=== PATIENT | female | born 1930 | race Caucasian/White ===

== ENCOUNTER 2017-01-26 19:07 | Inpatient (IN) | payer OTHER ==
[~2017-01-26] VITALS: Ht 149.8 cm; Wt 47.6 kg
--- NOTE | ~2017-01-26 | CON ---
[place], [place] REPORT OF CON[facility]ATION [id number] UNIT #: [id number] ROOM: [facility] DOCTOR: SUKHWINDER HERNANDEZ MD BIRTHDATE: [birth year] DOS: 01/27/2017 PULMONARY CONSULTATION, EVALUATION AND MANAGEMENT CONSULTATION REQUESTED BY: Hospitalist services. REASON FOR CONSULTATION: To assess the patient for acute exacerbation of COPD. HISTORY OF PRESENT ILLNESS: An 86-year-old white female with past history of COPD, presented to the Emergency Room. The patient developed symptoms of increased shortness of breath. The patient's symptoms have been noted worsened in the last few days. The patient had been admitted in [facility] [place] on 01/07/2017, managed for the congestive heart failure and COPD. The patient was discharged home on 01/13/2017. Shortness of breath has been noted gradually worsened. The patient denies symptoms of chest pain. She has been noted with symptoms of coughing with some sputum expectoration at times. She denies symptoms of chest pain or hemoptysis. She does complain of some pressure in the chest. The patient has been currently treated with oxygen supplementation and bronchodilators. She was known with history of chronic hypoxic respiratory failure and is supposedly using oxygen supplementation on 5 liters nasal cannula. REVIEW OF SYSTEMS: CONSTITUTIONAL: Complaining of symptoms of fatigue and tiredness, but does not have any fever or chills. EYES: Denies any burning, redness, or tenderness. EARS, NOSE, THROAT: No sore throat, hoarseness, otalgia, postnasal drainage. The patient was complaining of dryness of the nose. CARDIOVASCULAR: Denies anginal pain, but edema of the lower extremity at this time. Denies symptoms of palpitations or angina. GASTROINTESTINAL: Denies dysphagia, nausea, vomiting, abnormal weight loss, hematochezia, or gastroesophageal reflux. GENITOURINARY: Denies dysuria, suprapubic pain, hematuria. MUSCULOSKELETAL: Denies acute joint pain, redness, or tenderness. SKIN: Denies any lesions or rashes. CENTRAL NERVOUS SYSTEM: Denies dizziness, headache, diplopia or syncopal episodes. SOCIAL HISTORY: The patient stated that she is , does have 12 children. She has been noted history of tobacco use since teenager, 1 pack of cigarettes per day that was discontinued in approximately 2010. Denies any occupation-related pulmonary exposure. Denies any alcohol use or any illicit drugs use. FAMILY HISTORY: Noted both parents have been for this patient. Father from complication of heart problem. Mother at age 5555 years old, complication related to the cancer. HOME MEDICATIONS: Noted as use of oxygen supplementation on 5 liters nasal cannula, recent prescription of amoxicillin, some kind of cholesterol [place], [place] REPORT OF CONSULTATION NAME: PEDRO HACKETT UNIT #: [id number] ROOM: [facility] DOCTOR: FRITZ YUSUF MD,SUKHWINDER BIRTHDATE: [birth year] medication, doxepin, lisinopril, omeprazole, and verapamil. DRUG ALLERGY HISTORY: Noted as allergies to: 1. MORPHINE SULPHATE. 2. CODEINE PHOSPHATE. PHYSICAL EXAMINATION: GENERAL: This is an 86-year-old white female who has been noted currently awake and alert at this time without any acute distress, getting oxygen supplementation on nasal cannula. Height of 4 feet 11 inches, weight of 100 pounds, BMI 20.2. VITAL SIGNS: Temperature was recorded as normal since admission. Respiratory rate recorded as 36 on admission, currently noted about 20. The heart rate of 73. Blood pressure was noted as 134/67. Pulse oxygen saturation recorded on 3.5 liters nasal cannula as 92% saturation, noted on 5 liters nasal canula 99% saturation. HEENT: Examination shows head was atraumatic. Eyes nonicterus. NECK: Supple. Oral mucosa was noted as moist. CARDIOVASCULAR: S1, S2 audible. LUNGS: The patient was noted with moderate reduced breath sounds, scattered crackles of the lungs with expiratory wheezing. ABDOMEN: Soft, nontender. EXTREMITIES: Shows no acute edema, clubbing or cyanosis. CENTRAL NERVOUS SYSTEM: Cranial nerves 2-12 intact. No focal deficits. MUSCULOSKELETAL: No deformities. SKIN: Showed no lesions or rashes. LABORATORY DATA: The lactic acid yesterday noted 0.9. CBC on 01/26/2017, WBC count 13.1, hemoglobin ____, hematocrit 31.2 with platelet count 226,000. The PT/INR was noted as normal yesterday. CMP of 01/26/2017 was noted with BUN 20, creatinine 1.14. Carbon dioxide 39, chloride of 93. The PT, PTT repeated again in this morning labs were normal. Troponin were noted minimally elevated at 0.47 this morning. BMP this morning was noted, glucose 257, BUN 23, creatinine 1.45, sodium 134, CO2 was 37. CBC this morning, hemoglobin 8.4, hematocrit 27.7, platelet count was normal 180,000 with normal WBC count. The review of the radiology data: The chest x-ray that was done on this admission, 1 view on 01/26/2017 was reviewed, shows findings of increased interstitial marking with possibility of pulmonary venous congestion. There was no significant pleural fluid visible. There was no gross pulmonary infiltration visible as well. IMPRESSION: 1. The patient has been currently noted with findings of increased shortness of breath with recurrence of acute exacerbation of chronic obstructive pulmonary disease, possibility of acute congestive heart failure related to the current history, increased interstitial markings. Underlying interstitial lung disease cannot be completely excluded as well. 2. Past history of nicotine dependence with tobacco cessation a few years ago. 3. Acute kidney injury, most likely secondary to volume contraction, would be considered or congestive heart failure with prerenal azotemia. 4. Elderly status. [place], [place] REPORT OF CONSULTATION NAME: PEDRO HACKETT UNIT #: [id number] ROOM: [facility] DOCTOR: FRITZ YUSUF MD,[facility] BIRTHDATE: [birth year] 5. Dryness in nasal mucosa, related to possibly use of high flow of oxygen. PLAN OF TREATMENT: The patient was ordered [place] [facility] [place] for nasal passages to keep the nasal mucosa moist ____ humidified. Continuation of the IV Solu-Medrol. Bronchodilators. Avoid excessive diuretic therapy. Monitor respiratory status closely. Titrate oxygen, maintaining saturation 90% or greater. Continue use of the bronchodilators as well. Continue current antibiotics as ordered based on the kidney functions. She has been ordered Levaquin 500 mg every 48 hours. Collected sputum for Gram stain and culture if the patient expectorates any sputum as well. Further additional changes in the treatment will be done based on the progression of the illness. Mildly abnormal troponin was also noted, significance of that unknown. The patient already being assessed by the Cardiology Services for that reason. She has been also known with history of congestive heart failure, whether systolic or diastolic dysfunction was unknown as there has not been any echocardiogram available, and medical records from [facility], [place] have been ordered and not available at this time. Thanks for allowing me to participate in the care of this patient. SUKHWINDER HU MD CM:CONSTR:REPORT OF CONSULTATION 1242 01/27/17 1529 interface
--- NOTE | ~2017-01-26 | PR ---
[place], [place] PROGRESS NOTE NAME: PEDRO HACKETT [facility] #: [id number] UNIT #: [id number] ROOM: 520 DOCTOR: AMNA RIOS MD BIRTHDATE: [birth year] DOS: 01/30/2017 SUBJECTIVE: The patient was seen at her bedside today. No family was available. She was actually sleeping when I came into the room and lying almost flat on her right side, but did arouse quickly and stated that she is feeling much better today than she was for the last few days. She denied any chest pain or palpitations. She denies any nausea or vomiting. She is an 86-year-old woman with a history of severe obstructive lung disease, chronic kidney disease and diastolic heart failure. She was admitted for respiratory failure and probable pneumonia. She had recently been hospitalized at the [facility] for similar complaints. She does have chronic hypercarbic respiratory failure with hypoxemia and requires daily treatment with BiPAP. PHYSICAL EXAMINATION: VITAL SIGNS: Today, her pulse is 94 and regular, blood pressure is 130/62. She has temperature of 99.3, oxygen saturation is 99% with her on 5 liters of oxygen by nasal cannula. NECK: Supple. She has no jugular distention. Carotids are full. LUNGS: Respirations are unlabored. She has markedly decreased breath sounds bilaterally, but no wheezes or rales. HEART: Has a regular rhythm with a grade 4/6 late peaking systolic ejection murmur along the left sternal border. No diastolic murmurs are present. ABDOMEN: Soft and normoactive. EXTREMITIES: Showed no edema. LABORATORY DATA: Hemoglobin is low at 7.7, white count is 9300, platelet count is 193,000. Sodium is 138, potassium 3.6, BUN of 37 and creatinine 1.7. I did increase her diuresis yesterday and she seems to be tolerating that well with somewhat improvement of her respiratory status. IMPRESSION: 1. Chronic diastolic congestive heart failure. 2. Chronic respiratory failure with pulmonary fibrosis. The patient had an acute exacerbation prior to the current admission. 3. Borderline elevation of troponin due to chronic kidney disease, hypoxemia, work of breathing, etc. This represents a type 2 myocardial injury. The patient does not show any signs of an acute myocardial infarction. 4. Systolic ejection murmur due to hypertrophic cardiomyopathy with chordal systolic anterior motion of the mitral valve and a sigmoid interventricular septum. 5. Mild mitral insufficiency. 6. Hypertension. 7. Anemia. PLAN: I would continue her current medications as prescribed. No other cardiac workup is planned at this time. She is not a candidate for any aggressive or invasive cardiac diagnostic or therapeutic options. [place], [place] PROGRESS NOTE NAME: PEDRO HACKETT UNIT #: [id number] ROOM: 520 DOCTOR: AMNA RIOS MD BIRTHDATE: [birth year] We thank the hospitalist physicians for asking our advice regarding her care. AMNA RIOS MD CM:PNTRANS [phone] [id number] AMNA RIOS MD 01/30/172027 interface
--- NOTE | ~2017-01-26 | PR ---
[place], [place] PROGRESS NOTE NAME: PEDRO HACKETT UNIT #: [id number] ROOM: 520 DOCTOR: SUKHWINDER HERNANDEZ MD BIRTHDATE: [birth year] DOS: 01/31/2017 SUBJECTIVE: She has been noted comfortable at this time without any distress, continued to show reduction in symptoms of shortness breath. There were no symptoms of chest pain. Mild cough was noted. OBJECTIVE: VITAL SIGNS: For the patient, normal temperature this morning, respiratory rate 24, heart rate of 58, blood pressure 151/59. The pulse oxygen saturation of the patient noted on 5 L nasal cannula 97% saturation previously. BiPAP was 100% saturation. HEENT: Showed no new change. NECK: Supple. CARDIOVASCULAR: S1, S2 is audible. LUNGS: Noted with moderate decreased breath sounds, scattered crackles. There was no wheezing. ABDOMEN: Soft, nontender. LABORATORY DATA: The patient's CBC today, hemoglobin 7.3, hematocrit 23.5, platelet count was normal. WBC count was normal. CMP of the patient this morning, BUN 37, creatinine 1.46. Carbon dioxide of 37. IMPRESSION: 1. The patient with acute congestive heart failure with left ventricular outflow tract obstruction. 2. Elderly status. 3. Acute hypercapnic and hypoxic respiratory failure secondary to the above as well. 4. Acute exacerbation of chronic obstructive pulmonary disease. 5. Suspected acute pneumonia for this patient, treat her with antibiotics responding to the treatment. PLAN AND MANAGEMENT: Continue current plan of management, use of the BiPAP, oxygen supplementation, bronchodilators, diuretic therapy. Monitor kidney function and electrolytes. Other supportive plan of therapy and care. Usual treatment, other supportive plan of management. [place], [place] PROGRESS NOTE NAME: PEDRO HACKETT UNIT #: [id number] ROOM: 520 DOCTOR: SUKHWINDER HERNANDEZ MD BIRTHDATE: [birth year] SUKHWINDER HU MD CM:PNTRANS [phone] SUKHWINDER YUSUF MD 01/31/172043 interface
--- NOTE | ~2017-01-26 | PR ---
[place], [place] PROGRESS NOTE [id number] UNIT #: [id number] [facility] DOCTOR: FRITZ YUSUF MD,SUKHWINDER BIRTHDATE: [birth year] DOS: 01/28/2017 SUBJECTIVE: The patient developed acute respiratory distress yesterday with arterial blood gases obtained for the assessment. The patient was noted with significant hypoxia yesterday. She was transferred to Intensive Care Unit. BiPAP was started yesterday. She responded to treatment, still noted symptoms of shortness of breath, but noted decreased from yesterday. Mild cough noted without any sputum expectoration. Denies any symptoms of acute chest pain. OBJECTIVE: VITAL SIGNS: Recorded showed the temperature noted as normal; respiratory rate of 14-16, highest yesterday at 24, heart rate ranged between 63 and 73, blood pressure 137/47 to 98/56. Pulse oxygen saturation recorded on the BiPAP was 100% and with the oxygen supplementation 96% saturation with the nasal cannula. HEENT: Shows no acute change. NECK: Supple. CARDIOVASCULAR: S1, S2 audible. LUNGS: Show moderate reduction in the breath sounds noted, scattered crackles. No wheezing. ABDOMEN: Soft and nontender. EXTREMITIES: Show no edema. LABORATORY DATA: BMP this morning: BUN 31, creatinine 1.81, and CO2 of 36. CBC this morning: WBC count 12,000, hemoglobin 7.2, hematocrit 23.6, and platelet count 171,000. Arterial blood gases, the first one at the time of respiratory distress at 10:45 a.m., pH of 7.37, pCO2 of 52, and pO2 of 45.9. Arterial blood gases on the BiPAP that was done 4 hours later, pH of 7.39, pCO2 of 52, pO2 of 69 with 50% oxygen ____. The chest x-ray shows evidence of pulmonary venous congestion and findings of the congestive heart failure would be considered. IMPRESSION: 1. The patient who has been currently noted with gradual reduction and improvement in the respiratory status, the patient noted with acute worsening yesterday initially. 2. Acute congestive heart failure would be considered. 3. Possibility of right lower lobe pneumonia. 4. Acute kidney injury. PLAN OF MANAGEMENT: Continue the use of BiPAP with oxygen supplementation. Obtain PA and lateral chest x-ray for more accurate assessment of right lower lobe process, which suggest possibility of infiltration or pneumonia. Continuation of the other previous treatment plan and management. Supportive therapy, plan of care and treatment. Additional treatment changes will be done based on the progression of the illness. [place], [place] PROGRESS NOTE NAME: PEDRO HACKETT UNIT #: [id number] [facility] DOCTOR: FRITZ YUSUF MD,SUKHWINDER BIRTHDATE: [birth year] SUKHWINDER HU MD CM:ROSSI [id number] SUKHWINDER YUSUF MD 01/28/17 1249 interface
--- NOTE | ~2017-01-26 | PR ---
[place], [place] PROGRESS NOTE [id number] UNIT #: [id number] ROOM: [facility] DOCTOR: MARGARET ROSEN MD BIRTHDATE: [birth year] DOS: 01/28/2017 REASON FOR VISIT: CHF and elevated troponin. SUBJECTIVE: The patient is significantly much better today, less short of breath. She is sitting next to the bed and eating her lunch. She denies any chest pain or palpitations. She is a little short of breath, but better than yesterday. No PND, no orthopnea. REVIEW OF SYSTEMS: Review of the 8 systems negative except as mentioned above. RHYTHM STRIP: The patient is in sinus rhythm on the monitor. PHYSICAL EXAMINATION: VITAL SIGNS: Blood pressure 150/80, pulse 58, respiratory rate is 28. GENERAL: Alert, comfortable, in mild respiratory distress. HEAD AND NECK: Pupils round and equal. No jaundice. Tongue was moist and pharynx was clear. Neck is supple. No distended neck veins. No carotid bruits. CHEST: Symmetrical, nontender. LUNGS: A few scattered rhonchi and diminished diffusely. HEART: Regular, no S3, grade 2/6 to 3/6 systolic ejection murmurs. ABDOMEN: Benign, nontender. Bowel sounds normal. EXTREMITIES: Showed no edema and distal pulses are palpable. SKIN: Warm and dry. No cyanosis, no clubbing. NEUROLOGIC: The patient is alert, oriented, no focal neurologic deficit. RECTAL: Deferred. GENITOURINARY: Deferred. IMPRESSION: 1. Chronic congestive heart failure. 2. Acute on chronic respiratory failure, per Dr. Mckeon. 3. Borderline elevation of troponin due to chronic kidney disease. 4. Significant heart murmur due to aortic stenosis as well as chordal systolic anterior motion as well as sigmoid interventricular septum. 5. Aoho-db-blddoyaa aortic stenosis. 6. Mild mitral regurgitation. 7. Hypertension. 8. Anemia. RECOMMENDATIONS: 1. Continue her current medication. 2. I will start Lasix 20 mg once daily and monitor her blood pressures and renal function. 3. There is no further cardiac testing at this time. 4. She can be transferred to telemetry floor and possibly discharge home soon. 5. Echo findings are discussed with the patient and her family who is at bedside and all questions answered. 6. She will be at high risk for any cardiac surgical procedures, hence conservative medical therapy. [place], [place] PROGRESS NOTE NAME: PEDRO HACKETT UNIT #: [id number] ROOM: [facility] DOCTOR: MARGARET ROSEN MD BIRTHDATE: [birth year] MAGRARET ROSEN MD CM:PNTRANS [id number] MARGARET ROSEN MD 01/29/17 0406 interface
--- NOTE | ~2017-01-26 | PR ---
[place], [place] PROGRESS NOTE NAME: PEDRO HACKETT [facility] #: [id number] UNIT #: [id number] ROOM: 520 DOCTOR: AMNA RIOS MD BIRTHDATE: [birth year] DOS: SUBJECTIVE: The patient was seen at her bedside with family in attendance today. She is an 86-year-old woman with a history of obstructive lung disease, chronic kidney disease and diastolic heart failure. She was admitted on this occasion with worsening shortness of breath and possible pneumonia. She states that she was recently hospitalized at the [facility] for similar complaints. She was shown to have hypercarbic respiratory failure with hypoxemia and was placed in the intensive care unit where she did respond to diuresis and therapy with BiPAP. Even now; however, very slight increases in activity will result in significant hypoxemia, even though she is wearing supplemental oxygen. The patient did have some left-sided chest pain at rest prior to admission. In the hospital, she has shown no signs of acute myocardial infarction. An echocardiogram showed normal left ventricular size with a sigmoid deformity of the basal septum. There was normal left ventricular wall thickness and systolic function, but she did demonstrate chordal HONEY with outflow tract obstruction, possibly due to a small hyperdynamic ventricle. Today, when I walked in the room, she just finished using the bedside commode and she desaturated down into the 80s despite wearing oxygen at 5 liters per minute by nasal cannula. She was placed on BiPAP with immediate improvement in oxygen saturation. PHYSICAL EXAMINATION: VITAL SIGNS: Today, her pulse is 66 and regular, blood pressure is 125/47. She is afebrile. NECK: Supple. She has no jugular distention. She does have mild hepatojugular reflux. Carotids are full. LUNGS: Respirations are labored at rest with use of accessory muscles. She does have fine crackles at the bases bilaterally. HEART: Has a regular rhythm with an S4 gallop. Heart tones are distant. ABDOMEN: Soft. EXTREMITIES: Showed no edema. DIAGNOSTIC STUDIES: Chest x-ray done on 01/27/2017 showed pulmonary fibrosis with mild prominence of the pulmonary vasculature. A right basilar opacity was felt to represent atelectasis, although they could not rule out pneumonia. White count is elevated at 11,100, hemoglobin is 7.6. INR is 0.9. Sodium 137, potassium 4.0, BUN 37, creatinine 1.57. IMPRESSION: 1. Chronic diastolic congestive heart failure. 2. Chronic respiratory failure with pulmonary fibrosis associated with acute exacerbation. 3. Borderline elevation of troponin due to chronic kidney disease, hypoxemia, work of breathing, etc. This probably represents a type 2 myocardial injury. The patient does not show any signs of an acute myocardial infarction. 4. Systolic ejection murmur due to chordal systolic anterior motion and a [place], [place] PROGRESS NOTE NAME: PEDRO HACKETT UNIT #: [id number] [facility] DOCTOR: AMNA RIOS MD BIRTHDATE: [birth year] sigmoid interventricular septum. 5. Mild mitral insufficiency. 6. Hypertension. 7. Anemia. PLAN: We will increase her furosemide to 20 mg b.i.d. and continue to monitor her blood pressure and renal functions. She is not a candidate for any form of aggressive/invasive cardiac evaluation or management. We will do our best to keep her comfortable with medical therapy. We thank the hospitalist physicians for asking our advice regarding her care. AMNA RIOS MD CM:PNTRANS [phone] AMNA RIOS MD 01/29/172249 interface
--- NOTE | ~2017-01-26 | CON ---
[place], [place] REPORT OF CONSULTATION NAME: PEDRO HACKETT UNIT #: [id number] ROOM: [facility] DOCTOR: SAAD DORSEY MD BIRTHDATE: [birth year] DOS: 01/27/2017 REASON FOR CONSULTATION: Dyspnea and CHF. HISTORY OF PRESENT ILLNESS: The patient is an 86-year-old patient with history of COPD, anemia, chronic kidney disease, was consulted for shortness of breath. She apparently was admitted to the hospital in [place] and was discharged recently. She presented to the Emergency Room for shortness of breath and admitted to the hospital. She was transferred to ICU because of her hypoxia. She was transferred ICU year and Cardiology consulted. Apparently, the patient had some left-sided chest pain at rest on the night before. This pain has no radiation, no associated symptoms, mild and the pain on its own. She denies any chest pain. She is still short of breath from her chronic respiratory failure. Denies any palpitations, dizziness. No orthopnea. No fever and chills. No nausea, vomiting, no headaches. No neurologic symptoms. No genitourinary symptoms. REVIEW OF SYSTEMS: Review of the 8 systems negative except as mentioned above. PAST MEDICAL HISTORY: 1. Hypertension. 2. COPD. 3. Chronic heart failure per records. 4. Vitamin D deficiency. 5. Acid reflux. PAST SURGICAL HISTORY: History of , cholecystectomy and appendicectomy. SOCIAL HISTORY: The patient does not smoke or drink, does not use illicit drugs. FAMILY HISTORY: Noncontributory due to her age. Father from cardiac issues. Mother at the age of 55 from cancer. ALLERGIES: The patient is allergic to CODEINE. HOME MEDICATIONS: Reviewed. PHYSICAL EXAMINATION: VITAL SIGNS: Blood pressure was 137/65, pulse 75, respiratory rate 20, BMI 20.3. GENERAL: The patient was alert, comfortable, in mild respiratory distress on BiPAP. HEENT: Pupils are round, equal. No jaundice. Pharynx was incomplete, the patient was on BiPAP. NECK: Supple, no distended neck veins, no carotid bruit. CHEST: Symmetrical, nontender. LUNGS: Diffuse scattered rhonchi, diminished at bases. HEART: Regular rhythm, no S3, grade 1/6 systolic murmur. [place], [place] REPORT OF CONSULTATION NAME: PEDRO HACKETT UNIT #: [id number] ROOM: [facility] DOCTOR: SUNITA ARCE,SAAD BIRTHDATE: [birth year] ABDOMEN: Benign, nontender. Bowel sounds normal. EXTREMITIES: Showed no edema. Distal pulses palpable. SKIN: Warm, dry. No cyanosis, no clubbing. NEUROLOGIC: The patient is alert, oriented. No focal neurologic deficit. RECTAL: Deferred. GENITOURINARY: Deferred. MUSCULOSKELETAL: No joint tenderness or swelling. REVIEW OF THE DIAGNOSTIC TESTS: EKG, rhythm strips and imaging studies reviewed. Labs reviewed. EKG shows sinus rhythm with nonspecific ST changes. Pertinent labs include hemoglobin 8.9, creatinine 1.45. Troponin 0.47. The highest troponin was 0.067. IMPRESSION: 1. Congestive heart failure, possibly acute on chronic diastolic heart failure. The patient did receive some diuretics today, so tomorrow we will start Lasix 20 mg based on her blood pressures and kidney function. 2. Borderline elevation of troponin due to chronic kidney disease. 3. Chronic respiratory failure. 4. Anemia. 5. Hypertension. RECOMMENDATIONS: 1. Continue her current treatment and will use diuretics as needed. 2. A 2D echo was ordered and pending. 3. There is no family at bedside at the time of my examination. Thank you, Dr. Sanderson, for asking us to evaluate this patient and we will follow the case along with you. Just conservative medical therapy due to her age and other comorbidities. SAAD DORSEY MD CM:CONSTR:REPORT OF CONSULTATION 1148 01/28/17 0117 interface
--- NOTE | ~2017-01-26 | PR ---
[place], [place] PROGRESS NOTE NAME: PEDRO HACKETT [facility] #: [id number] UNIT #: [id number] ROOM: [facility] DOCTOR: FRITZ YUSUF MD,SUKHWINDER BIRTHDATE: [birth year] DOS: 01/29/2017 SUBJECTIVE: She had been noted comfortable, resting on the bed, eating breakfast, use the BiPAP. The patient was advised to continue diuretic therapy. The shortness of breath has been noted decreased. There was no coughing or sputum expectoration described by the patient. OBJECTIVE: VITAL SIGNS: For the patient this morning, the blood pressure was noted as 118/62, respiratory rate 17, heart rate 64, temperature normal. HEENT: Examination shows age-related changes. NECK: Supple. CARDIOVASCULAR SYSTEM: S1, S2 audible. LUNGS: The patient noted decreased breath sounds in the lower portion bilaterally with occasional crackles, no wheezing. ABDOMEN: Soft, nontender. EXTREMITIES: Shows no edema. LABORATORY DATA: BMP today: BUN 37, creatinine 1.57, glucose 180. CO2 was 34. CBC of this morning, WBC count 11.1, hemoglobin 7.6, hematocrit 24.2 with platelet count 175,000, 97% segmented neutrophils was noted. Urine culture shows evidence of heavy growth of E. coli. IMPRESSION: 1. The patient who has been noted with gradual resolution of the acute congestive heart failure with acute hypoxic respiratory failure. 2. Suspected pneumonia, right lower lobe. 3. Acute kidney injury as well. PLAN OF TREATMENT: Continue the BiPAP, oxygen supplementation, bronchodilators and other treatment as in progress. No change in the treatment will be needed for today. SUKHWINDER HU MD CM:PNTRANS [id number] SUKHWINDER YUSUF MD 01/29/17 1423 interface
--- NOTE | ~2017-01-26 | PR ---
[place], [place] PROGRESS NOTE NAME: PEDRO HAKCETT UNIT #: [id number] ROOM: 520 DOCTOR: SUKHWINDER HERNANDEZ MD BIRTHDATE: [birth year] DOS: 01/30/2017 SUBJECTIVE: She has been noted comfortable at this time, transferred to the fifth floor from the intensive care unit. Continue diuretic therapy as a medical management. She denies any chest pain. Shortness of breath has been resolving. OBJECTIVE: VITAL SIGNS: Normal temperature, respiratory rate 20, heart rate 68, blood pressure 150/80. Pulse oxygen saturation recorded on 5 liters nasal cannula 92% saturation. HEENT: Showed no acute change. NECK: Supple. CARDIOVASCULAR: S1, S2 audible. LUNGS: Scattered crackles, no wheezing. ABDOMEN: Soft, nontender. EXTREMITIES: Showed no edema. LABORATORY DATA: BMP today: BUN 37, creatinine 1.70, glucose 201, CO2 34. CBC this morning, hemoglobin 7.7, hematocrit 25.2, platelet count 193,000, 95% segmented neutrophils. Urine culture on 01/26/2017 was noted gram-negative bacilli as E. coli. IMPRESSION: 1. The patient with resolving acute hypoxic respiratory failure gradually with acute congestive heart failure. 2. Left ventricular outflow obstruction. The patient was also noted significant elevation of the gradient across the aortic valve. She was also noted anemia. Today, hemoglobin noted 7.7, hematocrit 25.3. 3. Severe debility. PLAN OF THERAPY: Continuation of the Lasix, which has been currently given 20 mg of Lasix b.i.d. Solu-Medrol dose will be decreased. The patient has COPD exacerbation and has been improving. All other supportive therapy, plan and management. Usual care. Continue other treatment, plan and management. Use of the BiPAP with the oxygen supplementation as well as tolerated. Overall, prognosis of the patient is guarded. [place], [place] PROGRESS NOTE NAME: PEDRO HACKETT UNIT #: [id number] ROOM: 520 DOCTOR: SUKHWINDER HERNANDEZ MD BIRTHDATE: [birth year] SUKHWINDER HU MD CM:PNTRANS [phone] SUKHWINDER YUSUF MD 01/31/17100 interface
[~2017-01-26 19:07] MED LIST: AMOXICILLIN500 MG PO; DOXEPIN10 MG; LISINOPRIL2.5 MG; PRILOSEC10 MG; THE MEDICINE S400 IU; VERAPAMIL; VICODIN 5/500 505 MG PO; [UNRECOGNIZED DRUG - REMARK]
[2017-01-26 19:21] VITALS: BP 114/49
[2017-01-26 19:45] VITALS: BP 99/69
[2017-01-26 20:00] LABS: BASO % 0.1 % (0.0-1.0); EOS # 0.2 10*3/uL (0.0-0.4); EOS % 1.2 % (1.0-4.0); HEMATOCRIT 31.2 % (37.0-47.0); HEMOGLOBIN 9.3 g/dl (12.0-16.0); LYMPH # 1.1 10*3/uL (1.3-4.4); LYMPH % 8.4 % (27.0-41.0); MEAN CELL VOLUME 95.7 fl (81.0-99.0); MEAN CORPUSCULAR HGB 28.5 pg (27.0-31.0); MEAN CORPUSCULAR HGB CONC 29.8 g/dl (33.0-37.0); MEAN PLATELET VOLUME 9.9 fl (9.6-12.3); MONO % 7.2 % (3.0-9.0); NEUT # 10.9 10*3/uL (2.3-7.9); NEUT % 82.6 % (47.0-73.0); PLATELET COUNT AUTOMATED 226 10*3/uL (130-400); RED BLOOD COUNT 3.26 10*6/uL (4.10-5.10); RED CELL DISTRI WIDTH 13.9 % (0-14.5); WHITE BLOOD COUNT 13.1 10*3/uL (4.8-10.8)
[2017-01-26 20:10] LABS: INTERNATIONAL NORM RATIO 0.9 (2.0-3.5)
[2017-01-26 20:15] VITALS: BP 110/65
[2017-01-26 20:17] LABS: CREATININE 1.14 mg/dL (0.55-1.02); MAGNESIUM 1.9 mg/dL (1.5-2.1); POTASSIUM 4.3 mmol/L (3.5-5.1); TOTAL PROTEIN 6.7 gm/dL (6.4-8.2)
[2017-01-26 20:21] LABS: TROPONIN I 0.066 ng/ml (<0.045)
[2017-01-26 20:30] VITALS: BP 122/59
[2017-01-26 20:42] LABS: BILIRUBIN NEGATIVE (NEGATIVE); BLOOD TRACE-INTACT (NEGATIVE); CLARITY SL CLOUDY (CLEAR); COLOR YELLOW (YELLOW); GLUCOSE NEGATIVE (NEGATIVE); KETONE NEGATIVE (NEGATIVE); LEUKO ESTERASE 2+ (NEGATIVE); NITRITE POSITIVE (NEGATIVE); PH 5.5 (5.0-9.0); SPECIFIC GRAVITY <= 1.005 (1.005-1.030); UROBILINOGEN 0.2 E.U./dl (0.2-1.0)
[2017-01-26 20:45] VITALS: BP 128/59
[2017-01-26 20:50] LABS: BACTERIA 4+; RBC 0-2 rbc/hpf (0-2); WBC 16-20 wbc/hpf (0-5)
[2017-01-26 21:35] VITALS: BP 117/43
[2017-01-27] VITALS (11 sets, daily range): BP systolic 98–158; BP diastolic 50–71
[2017-01-27] MEDS ORDERED: ADVAIR 250/501 EA INH (01:51)
[2017-01-27] MEDS ORDERED: CITALOPRAM10 MG PO (01:52)
[2017-01-27] MEDS ORDERED: ASPIR LOW81 MG PO (01:52)
[2017-01-27] MEDS ORDERED: FEROSUL325 MG PO (01:53)
[2017-01-27] MEDS ORDERED: LASIX40 MG PO (01:54)
[2017-01-27] MEDS ORDERED: DUONEB 3 MG/3 ML3 M1 INH (01:54)
[2017-01-27] MEDS ORDERED: SPIRIVA18 MCG PO (01:56)
[2017-01-27] MEDS ORDERED: VITAMIN B121000 MC1 PO (01:58)
[2017-01-27] MEDS ORDERED: CALAN120 M1 PO (01:58)
[2017-01-27] MEDS ORDERED: VITAMIN D35000 UNIT/ PO (02:00)
[2017-01-27 03:43] LABS: HEMATOCRIT 27.7 % (37.0-47.0); HEMOGLOBIN 8.4 g/dl (12.0-16.0); MEAN CELL VOLUME 95.2 fl (81.0-99.0); MEAN CORPUSCULAR HGB 28.9 pg (27.0-31.0); MEAN CORPUSCULAR HGB CONC 30.3 g/dl (33.0-37.0); MEAN PLATELET VOLUME 9.6 fl (9.6-12.3); PLATELET COUNT AUTOMATED 180 10*3/uL (130-400); RED BLOOD COUNT 2.91 10*6/uL (4.10-5.10); RED CELL DISTRI WIDTH 13.7 % (0-14.5); WHITE BLOOD COUNT 9.9 10*3/uL (4.8-10.8)
[2017-01-27 03:54] LABS: ACT PARTIAL THROMBO TIME 24.9 SECONDS (20.8-31.5); INTERNATIONAL NORM RATIO 0.9 (2.0-3.5)
[2017-01-27 03:55] LABS: CREATININE 1.45 mg/dL (0.55-1.02)
[2017-01-27 04:00] LABS: FREE T4 0.98 ng/dl (0.76-1.46)
[2017-01-27 04:05] LABS: THYROID STIM HORMONE (HS) 2.47 uIU/ml (0.358-4.75)
[2017-01-27 04:08] LABS: PLATELET SUFFICIENCY NORMAL (NORMAL); TOTAL CELLS COUNTED 100 #CELLS
[2017-01-27 08:24] LABS: VITAMIN D, 25-HYDROXY 39.6 ng/mL (30-100)
[2017-01-27 11:01] LABS: ABG BASE EXCESS 4.5 mmol/L (-2.0-2.0); ARTERIAL BLOOD GAS PCO2 52.3 mmHg (35-45); ARTERIAL BLOOD GAS PH 7.375 (7.35-7.45); ARTERIAL BLOOD GAS PO2 45.9 mmHg (80-90)
[2017-01-27 11:02] LABS: HEMATOCRIT 27.9 % (37.0-47.0); HEMOGLOBIN 8.6 g/dl (12.0-16.0); MEAN CELL VOLUME 94.6 fl (81.0-99.0); MEAN CORPUSCULAR HGB 29.2 pg (27.0-31.0); MEAN CORPUSCULAR HGB CONC 30.8 g/dl (33.0-37.0); MEAN PLATELET VOLUME 10.2 fl (9.6-12.3); PLATELET COUNT AUTOMATED 201 10*3/uL (130-400); RED BLOOD COUNT 2.95 10*6/uL (4.10-5.10); RED CELL DISTRI WIDTH 13.6 % (0-14.5); WHITE BLOOD COUNT 10.9 10*3/uL (4.8-10.8)
[2017-01-27 11:27] LABS: TOTAL CELLS COUNTED 100 #CELLS
[2017-01-27 11:28] LABS: PLATELET SUFFICIENCY NORMAL (NORMAL)
[2017-01-27 11:40] LABS: ALBUMIN 2.7 gm/dl (3.1-4.5); CREATININE 1.61 mg/dL (0.55-1.02); POTASSIUM 3.6 mmol/L (3.5-5.1); TOTAL PROTEIN 6.5 gm/dL (6.4-8.2)
[2017-01-27 13:20] LABS: ABG BASE EXCESS 6.3 mmol/L (-2.0-2.0); ABG HCO3 31.6 mmol/l (22-26); ABG O2 SATURATION 95.2 % (95-97); ARTERIAL BLOOD GAS PCO2 52.2 mmHg (35-45); ARTERIAL BLOOD GAS PH 7.397 (7.35-7.45); ARTERIAL BLOOD GAS PO2 69.7 mmHg (80-90)
[2017-01-28] VITALS: BP 139/49
[2017-01-28 04:00] VITALS: BP 137/47
[2017-01-28 05:52] LABS: CREATININE 1.81 mg/dL (0.55-1.02)
[2017-01-28 05:53] LABS: POTASSIUM 4.6 mmol/L (3.5-5.1)
[2017-01-28 05:55] LABS: HEMATOCRIT 23.6 % (37.0-47.0); HEMOGLOBIN 7.2 g/dl (12.0-16.0); MEAN CELL VOLUME 95.2 fl (81.0-99.0); MEAN CORPUSCULAR HGB CONC 30.5 g/dl (33.0-37.0); MEAN PLATELET VOLUME 10.5 fl (9.6-12.3); PLATELET COUNT AUTOMATED 171 10*3/uL (130-400); RED BLOOD COUNT 2.48 10*6/uL (4.10-5.10)
[2017-01-28 07:00] LABS: PLATELET SUFFICIENCY NORMAL (NORMAL); POLYCHROMASIA SLIGHT; TOTAL CELLS COUNTED 100 #CELLS
[2017-01-28 08:00] VITALS: BP 150/80
[2017-01-28 12:00] VITALS: BP 132/54
[2017-01-28 16:00] VITALS: BP 139/50
[2017-01-28 20:00] VITALS: BP 137/56
[2017-01-29] VITALS: BP 133/57
[2017-01-29 04:00] VITALS: BP 136/58
[2017-01-29 06:17] LABS: HEMATOCRIT 24.2 % (37.0-47.0); HEMOGLOBIN 7.6 g/dl (12.0-16.0); MEAN CELL VOLUME 94.5 fl (81.0-99.0); MEAN CORPUSCULAR HGB 29.7 pg (27.0-31.0); MEAN CORPUSCULAR HGB CONC 31.4 g/dl (33.0-37.0); MEAN PLATELET VOLUME 10.6 fl (9.6-12.3); PLATELET COUNT AUTOMATED 175 10*3/uL (130-400); RED BLOOD COUNT 2.56 10*6/uL (4.10-5.10); RED CELL DISTRI WIDTH 13.9 % (0-14.5); WHITE BLOOD COUNT 11.1 10*3/uL (4.8-10.8)
[2017-01-29 06:32] LABS: ALBUMIN 2.6 gm/dl (3.1-4.5); CREATININE 1.57 mg/dL (0.55-1.02); PHOSPHOROUS 3.8 mg/dL (2.5-4.9); TOTAL PROTEIN 5.8 gm/dL (6.4-8.2)
[2017-01-29 07:31] LABS: TOTAL CELLS COUNTED 100 #CELLS
[2017-01-29 07:32] LABS: PLATELET SUFFICIENCY NORMAL (NORMAL); POLYCHROMASIA SLIGHT
[2017-01-29 08:00] VITALS: BP 118/62
[2017-01-29 11:35] VITALS: BP 160/80
[2017-01-29 16:00] VITALS: BP 125/47
[2017-01-29 20:00] VITALS: BP 134/50
[2017-01-30] VITALS: BP 138/51
[2017-01-30 05:56] LABS: HEMATOCRIT 25.2 % (37.0-47.0); HEMOGLOBIN 7.7 g/dl (12.0-16.0); MEAN CELL VOLUME 93.7 fl (81.0-99.0); MEAN CORPUSCULAR HGB 28.6 pg (27.0-31.0); MEAN CORPUSCULAR HGB CONC 30.6 g/dl (33.0-37.0); MEAN PLATELET VOLUME 10.5 fl (9.6-12.3); PLATELET COUNT AUTOMATED 193 10*3/uL (130-400); RED BLOOD COUNT 2.69 10*6/uL (4.10-5.10); WHITE BLOOD COUNT 9.3 10*3/uL (4.8-10.8)
[2017-01-30 06:16] LABS: CREATININE 1.7 mg/dL (0.55-1.02); POTASSIUM 3.6 mmol/L (3.5-5.1)
[2017-01-30 06:37] LABS: TOTAL CELLS COUNTED 100 #CELLS
[2017-01-30 06:38] LABS: PLATELET SUFFICIENCY NORMAL (NORMAL); POLYCHROMASIA SLIGHT
[2017-01-30 08:00] VITALS: BP 150/80
[2017-01-30 12:00] VITALS: BP 130/62
[2017-01-30 16:00] VITALS: BP 130/42
[2017-01-30 20:00] VITALS: BP 108/57
[2017-01-31] VITALS: BP 133/53
[2017-01-31 06:17] LABS: HEMATOCRIT 23.5 % (37.0-47.0); HEMOGLOBIN 7.3 g/dl (12.0-16.0); LYMPH # 0.3 10*3/uL (1.3-4.4); LYMPH % 3.7 % (27.0-41.0); MEAN CELL VOLUME 93.3 fl (81.0-99.0); MEAN CORPUSCULAR HGB CONC 31.1 g/dl (33.0-37.0); MEAN PLATELET VOLUME 10.6 fl (9.6-12.3); MONO # 0.4 10*3/uL (0.1-1.0); MONO % 4.4 % (3.0-9.0); NEUT % 89.7 % (47.0-73.0); PLATELET COUNT AUTOMATED 212 10*3/uL (130-400); RED BLOOD COUNT 2.52 10*6/uL (4.10-5.10); RED CELL DISTRI WIDTH 13.9 % (0-14.5)
[2017-01-31 06:35] LABS: ALBUMIN 2.6 gm/dl (3.1-4.5); CREATININE 1.46 mg/dL (0.55-1.02); MAGNESIUM 1.9 mg/dL (1.5-2.1); POTASSIUM 3.7 mmol/L (3.5-5.1); TOTAL PROTEIN 5.3 gm/dL (6.4-8.2)
[2017-01-31 08:00] VITALS: BP 151/59
[2017-01-31 12:00] VITALS: BP 124/40
[2017-01-31 15:52] VITALS: BP 145/64
[2017-01-31 20:00] VITALS: BP 98/50
[2017-02-01] VITALS: BP 142/41
[2017-02-01 06:06] LABS: BASO % 0.1 % (0.0-1.0); HEMATOCRIT 24.1 % (37.0-47.0); HEMOGLOBIN 7.5 g/dl (12.0-16.0); LYMPH # 0.5 10*3/uL (1.3-4.4); LYMPH % 5.8 % (27.0-41.0); MEAN CELL VOLUME 94.1 fl (81.0-99.0); MEAN CORPUSCULAR HGB 29.3 pg (27.0-31.0); MEAN CORPUSCULAR HGB CONC 31.1 g/dl (33.0-37.0); MEAN PLATELET VOLUME 10.2 fl (9.6-12.3); MONO # 0.4 10*3/uL (0.1-1.0); MONO % 4.6 % (3.0-9.0); NEUT # 7.9 10*3/uL (2.3-7.9); NEUT % 86.6 % (47.0-73.0); PLATELET COUNT AUTOMATED 217 10*3/uL (130-400); RED BLOOD COUNT 2.56 10*6/uL (4.10-5.10); RED CELL DISTRI WIDTH 14.3 % (0-14.5); WHITE BLOOD COUNT 9.1 10*3/uL (4.8-10.8)
[2017-02-01 06:35] LABS: ALBUMIN 2.6 gm/dl (3.1-4.5); MAGNESIUM 2.2 mg/dL (1.5-2.1); POTASSIUM 4.3 mmol/L (3.5-5.1)
[2017-02-01 06:39] LABS: CREATININE 1.1 mg/dL (0.55-1.02); TOTAL PROTEIN 5.3 gm/dL (6.4-8.2)
[2017-02-01 08:00] VITALS: BP 156/50
[2017-02-01 12:00] VITALS: BP 145/56
[2017-02-01 16:00] VITALS: BP 145/50
[2017-02-01 20:00] VITALS: BP 135/49
[2017-02-02] VITALS: BP 155/58
[2017-02-02 06:20] LABS: HEMATOCRIT 25.1 % (37.0-47.0); HEMOGLOBIN 7.7 g/dl (12.0-16.0); MEAN CELL VOLUME 94.4 fl (81.0-99.0); MEAN CORPUSCULAR HGB 28.9 pg (27.0-31.0); MEAN CORPUSCULAR HGB CONC 30.7 g/dl (33.0-37.0); MEAN PLATELET VOLUME 10.2 fl (9.6-12.3); NUCLEATED RED BLOOD CELL 0.3 % (0.0-0.0); PLATELET COUNT AUTOMATED 251 10*3/uL (130-400); RED BLOOD COUNT 2.66 10*6/uL (4.10-5.10); RED CELL DISTRI WIDTH 14.5 % (0-14.5); WHITE BLOOD COUNT 9.2 10*3/uL (4.8-10.8)
[2017-02-02 06:48] LABS: CREATININE 1.17 mg/dL (0.55-1.02); POTASSIUM 4.3 mmol/L (3.5-5.1)
[2017-02-02 07:28] LABS: TOTAL CELLS COUNTED 100 #CELLS
[2017-02-02 07:29] LABS: PLATELET SUFFICIENCY NORMAL (NORMAL)
[2017-02-02 08:00] VITALS: BP 170/50
[2017-02-02 12:00] VITALS: BP 122/46
[2017-02-02 16:00] VITALS: BP 149/44
[2017-02-02 20:00] VITALS: BP 154/40
[2017-02-03] VITALS: BP 158/53
[2017-02-03 06:29] LABS: MEAN CELL VOLUME 96.3 fl (81.0-99.0); MEAN CORPUSCULAR HGB 29.6 pg (27.0-31.0); MEAN CORPUSCULAR HGB CONC 30.8 g/dl (33.0-37.0); NUCLEATED RED BLOOD CELL 0.1 10*3/uL (0.0-0.0); NUCLEATED RED BLOOD CELL 0.5 % (0.0-0.0); PLATELET COUNT AUTOMATED 262 10*3/uL (130-400); RED CELL DISTRI WIDTH 14.8 % (0-14.5); WHITE BLOOD COUNT 10.4 10*3/uL (4.8-10.8)
[2017-02-03 06:48] LABS: BUN 43 mg/dl (7-24); CHLORIDE 92 mmol/L (98-107); CREATININE 1.03 mg/dL (0.55-1.02); POTASSIUM 5.2 mmol/L (3.5-5.1); SODIUM 141 mmol/L (136-145)
[2017-02-03 07:18] LABS: PLATELET SUFFICIENCY NORMAL (NORMAL); POLYCHROMASIA SLIGHT; TOTAL CELLS COUNTED 100 #CELLS
[2017-02-03 08:00] VITALS: BP 166/50
[2017-02-03 12:00] VITALS: BP 142/84
[2017-02-03 16:00] VITALS: BP 152/44
[2017-02-03 20:00] VITALS: BP 156/40
[2017-02-04] VITALS: BP 148/83
[2017-02-04 06:14] LABS: HEMOGLOBIN 8.2 g/dl (12.0-16.0); MEAN CELL VOLUME 95.1 fl (81.0-99.0); MEAN CORPUSCULAR HGB 28.9 pg (27.0-31.0); MEAN CORPUSCULAR HGB CONC 30.4 g/dl (33.0-37.0); MEAN PLATELET VOLUME 10.2 fl (9.6-12.3); NUCLEATED RED BLOOD CELL 0.2 % (0.0-0.0); PLATELET COUNT AUTOMATED 288 10*3/uL (130-400); RED BLOOD COUNT 2.84 10*6/uL (4.10-5.10); RED CELL DISTRI WIDTH 14.6 % (0-14.5); WHITE BLOOD COUNT 12.3 10*3/uL (4.8-10.8)
[2017-02-04 06:28] LABS: BUN 34 mg/dl (7-24); CHLORIDE 92 mmol/L (98-107); SODIUM 140 mmol/L (136-145)
[2017-02-04 06:49] LABS: POTASSIUM 3.7 mmol/L (3.5-5.1)
[2017-02-04 06:52] LABS: PLATELET SUFFICIENCY NORMAL (NORMAL); POLYCHROMASIA SLIGHT; TOTAL CELLS COUNTED 100 #CELLS
[2017-02-04 08:00] VITALS: BP 164/88
[2017-02-04] MEDS ORDERED: DOXYCYCLINE100 M3 PO (11:55)
[2017-02-04] MEDS ORDERED: ACETAZOLAMIDE250 MG PO (11:55)
[2017-02-04] MEDS ORDERED: PREDNISONE10 MG PO (11:56)
== END 2017-02-04 14:37 | disposition home or self-care (01) | DRG 871 ==
LOC: ED 19:07 → EDHOLD 20:40 → ICCU 20:40 → 5E 20:40 → ICCU 01-27 10:09 → 5E 01-29 14:25
PROVIDERS: Emergency Medicine; Emergency Medicine Emergency Medical Services; Family Medicine; Internal Medicine; Internal Medicine Critical Care Medicine; Internal Medicine Hospice and Palliative Medicine; Internal Medicine Nephrology; ADMIT Internal Medicine
PROC: 5A09357 Assistance with Respiratory Ventilation, Less than 24 Consecutive Hours, Continuous Positive Airway Pressure (ICD-10-PCS; principal; 2017-01-27)
DX: A41.9 Sepsis, unspecified organism (principal); N17.0 Acute kidney failure with tubular necrosis; J96.21 Acute and chronic respiratory failure with hypoxia; I50.33 Acute on chronic diastolic (congestive) heart failure; E43 Unspecified severe protein-calorie malnutrition; J18.1 Lobar pneumonia, unspecified organism; J44.0 Chronic obstructive pulmonary disease with (acute) lower respiratory infection; I13.0 Hypertensive heart and chronic kidney disease with heart failure and stage 1 through stage 4 chronic kidney disease, or unspecified chronic kidney disease; J96.22 Acute and chronic respiratory failure with hypercapnia; J44.1 Chronic obstructive pulmonary disease with (acute) exacerbation; N39.0 Urinary tract infection, site not specified; I42.2 Other hypertrophic cardiomyopathy; E87.1 Hypo-osmolality and hyponatremia; J98.11 Atelectasis; Q21.0 Ventricular septal defect; K21.9 Gastro-esophageal reflux disease without esophagitis; J84.10 Pulmonary fibrosis, unspecified; R65.20 Severe sepsis without septic shock; D64.9 Anemia, unspecified; R31.9 Hematuria, unspecified; E55.9 Vitamin D deficiency, unspecified; I25.10 Atherosclerotic heart disease of native coronary artery without angina pectoris; K57.30 Diverticulosis of large intestine without perforation or abscess without bleeding; B96.20 Unspecified Escherichia coli [E. coli] as the cause of diseases classified elsewhere; K59.00 Constipation, unspecified; I07.1 Rheumatic tricuspid insufficiency; I37.1 Nonrheumatic pulmonary valve insufficiency; E87.8 Other disorders of electrolyte and fluid balance, not elsewhere classified; R54 Age-related physical debility; N18.9 Chronic kidney disease, unspecified; I34.0 Nonrheumatic mitral (valve) insufficiency; I35.0 Nonrheumatic aortic (valve) stenosis; R73.9 Hyperglycemia, unspecified; Z68.20 Body mass index [BMI] 20.0-20.9, adult; Z88.5 Allergy status to narcotic agent; Z90.49 Acquired absence of other specified parts of digestive tract; I25.2 Old myocardial infarction; Z80.9 Family history of malignant neoplasm, unspecified; Z82.49 Family history of ischemic heart disease and other diseases of the circulatory system; Z87.891 Personal history of nicotine dependence; Z79.82 Long term (current) use of aspirin; Z79.899 Other long term (current) drug therapy; E78.5 Hyperlipidemia, unspecified

== ENCOUNTER 2017-02-20 15:01 | Emergency (ER) | payer OTHER ==
[~2017-02-20] VITALS: Ht 152.4 cm; Wt 49.0 kg
[~2017-02-20 15:01] MED LIST changes: +ACETAZOLAMIDE250 MG PO; +ADVAIR 250/501 EA INH; +ASPIR LOW81 MG PO; +CALAN120 M1 PO; +CITALOPRAM10 MG PO; +DOXYCYCLINE100 M3 PO; +DUONEB 3 MG/3 ML3 M1 INH; +FEROSUL325 MG PO; +LASIX40 MG PO; +PREDNISONE10 MG PO; +SPIRIVA18 MCG PO; +VITAMIN B121000 MC1 PO; +VITAMIN D35000 UNIT/ PO
[2017-02-20 16:11] LABS: BASO % 0.1 % (0.0-1.0); EOS # 0.1 10*3/uL (0.0-0.4); EOS % 0.8 % (1.0-4.0); HEMATOCRIT 30.3 % (37.0-47.0); HEMOGLOBIN 9.1 g/dl (12.0-16.0); LYMPH # 0.8 10*3/uL (1.3-4.4); MEAN CELL VOLUME 96.2 fl (81.0-99.0); MEAN CORPUSCULAR HGB 28.9 pg (27.0-31.0); MEAN PLATELET VOLUME 10.4 fl (9.6-12.3); MONO # 0.6 10*3/uL (0.1-1.0); MONO % 6.3 % (3.0-9.0); NEUT # 7.3 10*3/uL (2.3-7.9); NEUT % 83.1 % (47.0-73.0); PLATELET COUNT AUTOMATED 226 10*3/uL (130-400); RED BLOOD COUNT 3.15 10*6/uL (4.10-5.10); RED CELL DISTRI WIDTH 15.8 % (0-14.5); WHITE BLOOD COUNT 8.8 10*3/uL (4.8-10.8)
[2017-02-20 16:18] LABS: BILIRUBIN NEGATIVE (NEGATIVE); BLOOD NEGATIVE (NEGATIVE); CLARITY SL CLOUDY (CLEAR); COLOR YELLOW (YELLOW); GLUCOSE NEGATIVE (NEGATIVE); KETONE NEGATIVE (NEGATIVE); LEUKO ESTERASE NEGATIVE (NEGATIVE); NITRITE NEGATIVE (NEGATIVE); UROBILINOGEN 0.2 E.U./dl (0.2-1.0)
[2017-02-20 16:30] LABS: ALBUMIN 2.8 gm/dl (3.1-4.5); CREATININE 1.07 mg/dL (0.55-1.02); POTASSIUM 3.4 mmol/L (3.5-5.1); TOTAL PROTEIN 6.2 gm/dL (6.4-8.2)
[2017-02-20 16:40] LABS: BACTERIA 2+; WBC 0-2 wbc/hpf (0-5)
[2017-02-20] MEDS ORDERED: PYRIDIUM200 M1 PO (16:59)
[2017-02-20] MEDS ORDERED: NORCO 5-325 TA1 EACH PO (16:59)
== END 2017-02-20 17:28 | disposition home or self-care (01) ==
LOC: ED 15:01
PROVIDERS: Physician Assistant
DX: R30.0 Dysuria (principal); G89.29 Other chronic pain; M54.5 Low back pain; Z79.899 Other long term (current) drug therapy; Z79.82 Long term (current) use of aspirin; Z90.49 Acquired absence of other specified parts of digestive tract; Z98.890 Other specified postprocedural states; Z88.5 Allergy status to narcotic agent

== ENCOUNTER 2017-02-26 16:39 | Inpatient (IN) | payer OTHER ==
[~2017-02-26] VITALS: Ht 152.4 cm; Wt 45.8 kg
--- NOTE | ~2017-02-26 | CON ---
[place], [place] REPORT OF CONSULTATION NAME: PEDRO HACKETT UNIT #: [id number] ROOM: 522 DOCTOR: ARMIN TONG,SEPTEMBER BIRTHDATE: [birth year] DOS: HISTORY OF PRESENT ILLNESS: The patient is an 86-year-old female who was admitted from home due to nausea and intolerance of oral Zyvox. She had completed approximately 4 doses of it at home for VRE in her urine. She has been first treated and diagnosed a couple of times in the last month or so for urinary infection. She had a urine that was positive for E. coli, mid January, January 31. She had a CT here of the abdomen and pelvis, which did not demonstrate any renal issues, only severe diverticulosis. Her symptoms that she states for her UTI, are back pain, which she states is recurring, which she indicates is lumbar that radiates around to her side. Denies any recent falls, states she did have some dysuria prior to the urine culture being obtained. Had nausea with the Zyvox. No fevers or chills, no hematuria. No cough or shortness of breath. No diarrhea. PAST MEDICAL HISTORY: As above as well as appendectomy, , cholecystectomy, COPD, diverticulosis. FAMILY MEDICAL HISTORY: Father due to cardiac disease. Mother had cancer, heart disease, and diabetes. SOCIAL HISTORY: She is a reformed smoker, no alcohol or illicit drug use. REVIEW OF SYSTEMS: As above in history of present illness. Further review of systems unremarkable. No lower extremity edema. No joint swelling or pain. She does have severe kyphosis. States, she still had back pain yesterday and has resolved today. LABORATORY DATA: WBC is 5.9, platelets 332. BUN 16, creatinine 1.23. LFTs within normal limits. Troponin 0.053. UA positive for nitrites, only trace leukocyte esterase; however, WBC is 11-15 per high powered field. Urine culture is pending. Blood cultures are negative thus far. CURRENT MEDICATIONS: Include linezolid being given IV, verapamil, Lasix, Feosol, B12, Celexa, vitamin D, aspirin, Dulera, DuoNeb, [place], Restoril, Zofran, milk of magnesia. PHYSICAL EXAMINATION: VITAL SIGNS: Temperature 98.8, pulse 69, respirations 20, BP 112/38. She has been afebrile since admission. GENERAL: Alert and oriented, frail 86-year-old female in no acute distress, nontoxic in appearance. HEAD, EYES, EARS, NOSE AND THROAT: Normocephalic, no thrush. NECK: Supple. No cervical lymphadenopathy. LUNGS: Diminished right base. Respirations even and unlabored. No rales or rhonchi. HEART: Regular rhythm with grade 3-4 murmur noted. ABDOMEN: Soft, nondistended. EXTREMITIES: No edema, deformity or cyanosis. She does have severe kyphosis. No CVA tenderness. Eubanks catheter draining clear yellow urine with trace of [place], [place] REPORT OF CONSULTATION NAME: PEDRO HACKETT UNIT #: [id number] ROOM: 522 DOCTOR: ARMIN TONGSEPTEMBER BIRTHDATE: [birth year] sediment. ASSESSMENT: Vancomycin-resistant enterococci bacteriuria, possible urinary tract infection. PLAN: She is tolerating the Zyvox IV, it could probably be stopped tomorrow that will give her a total of 3 days. We will await her urine culture. She has remained in contact isolation. I did review her chest x-ray films. Case discussed with Dr. Kelli Mar. Also re reviewed prior charts. ADDENDUM. After reviewing the labs, radiographs and microbiology, I agree with the above plans as described in Infectious Disease consult. I will follow the patient up clinically and make appropriate adjustments accordingly. MARIAM FUNEZ CNP KELLI MAR MD CM:CONSTR:REPORT OF CONSULTATION 17 02/28/17 413 interface
--- NOTE | ~2017-02-26 | PR ---
[place], [place] PROGRESS NOTE NAME: [facility]ACKETT [id number] UNIT #: [id number] ROOM: 522 DOCTOR: ARMIN TONG,SEPTEMBER BIRTHDATE: [birth year] DOS: 02/28/2017 SUBJECTIVE: The patient is being followed for VRE bacteriuria, possible UTI. She was on Zyvox as an outpatient, did not tolerate it orally, had nausea and vomiting. She was admitted with that. She has had a urine culture done on admission, which is now growing Gram-negative bacilli. She was also treated for E. coli in mid January. Her UA only had a trace leukocyte esterase and 11-15 wbc's. Her complaint was originally back pain, which she also was still complaining of yesterday. She denies any back pain today. She did have a CT of the abdomen and pelvis in mid January, which did not demonstrate any renal calculi or hydronephrosis. She has been afebrile. Denies any nausea, vomiting or diarrhea. Her Eubanks catheter was removed approximately 3 hours ago and she has not urinated yet. White count is normal. CURRENT MEDICATIONS: Include linezolid IV, Calan SR, Lasix, Feosol, Celexa, vitamin D, aspirin, Dulera, DuoNeb, [place], Restoril, Zofran. LABORATORY DATA: WBC's 5.6, platelets 285. BUN 19, creatinine 1.29. PHYSICAL EXAMINATION: VITAL SIGNS: Showed temperature 96.7, pulse 60, respirations 22, BP 122/50. GENERAL: An 86-year-old female in no acute distress. HEAD, EYES, EARS, NOSE AND THROAT: Normocephalic. No thrush. LUNGS: Diminished on the right. Respirations even and unlabored. HEART: Regular rhythm. No murmur appreciated. ABDOMEN: Soft, nontender. EXTREMITIES: No edema. BACK: She does have severe kyphosis. ASSESSMENT AND PLAN: Vancomycin resistant enterococcal bacteriuria, which has cleared. She now has Gram-negative nallely bacteriuria. If she is not symptomatic, specifically for urinary tract infection, would not recommend treating it. Repeat urine cultures are not indicated to verify clearing of bacteria. She is likely colonized at this point and I would suspect it is going to be something ____ resistant to antibiotics given all those she has had in the last month or so. If her back pain continues, considering that her kidneys have been without issue on her CT in January, then I would work up a musculoskeletal source for her back pain, especially given her severe kyphosis and her age and likely osteoporosis. SEPTEMBER RAN FUNEZ [place], [place] PROGRESS NOTE NAME: PEDRO HACKETT UNIT #: [id number] ROOM: 522 DOCTOR: ARMIN TONG BIRTHDATE: [birth year] KELLI MAR MD CM:PNTRANS [id number] SEPTEMBER ARMIN TONG 03/01/17 0451 interface
--- NOTE | ~2017-02-26 | PR ---
[place], [place] PROGRESS NOTE NAME: PEDRO HACKETT UNIT #: [id number] ROOM: 522 DOCTOR: ISABELA ARCE,KELLI Broussard BIRTHDATE: [birth year] DOS: 02/28/2017 ADDENDUM After reviewing the chart, labs and cultures, I agree with the plans as described above. We will follow the patient up clinically and adjust accordingly. KELLI MAR MD CM:PNTRANS 1404 [id number] KELLI MAR MD 03/02/17 1441 interface
[~2017-02-26 16:39] MED LIST changes: +NORCO 5-325 TA1 EACH PO; +PYRIDIUM200 M1 PO
[2017-02-26 16:53] VITALS: BP 93/57
[2017-02-26 17:38] LABS: BASO % 0.2 % (0.0-1.0); EOS % 0.6 % (1.0-4.0); HEMATOCRIT 28.5 % (37.0-47.0); HEMOGLOBIN 8.5 g/dl (12.0-16.0); LYMPH # 0.8 10*3/uL (1.3-4.4); LYMPH % 13.6 % (27.0-41.0); MEAN CELL VOLUME 95.3 fl (81.0-99.0); MEAN CORPUSCULAR HGB 28.4 pg (27.0-31.0); MEAN CORPUSCULAR HGB CONC 29.8 g/dl (33.0-37.0); MEAN PLATELET VOLUME 9.1 fl (9.6-12.3); MONO # 0.6 10*3/uL (0.1-1.0); MONO % 9.1 % (3.0-9.0); NEUT # 4.7 10*3/uL (2.3-7.9); PLATELET COUNT AUTOMATED 325 10*3/uL (130-400); RED BLOOD COUNT 2.99 10*6/uL (4.10-5.10); RED CELL DISTRI WIDTH 15.3 % (0-14.5); WHITE BLOOD COUNT 6.2 10*3/uL (4.8-10.8)
[2017-02-26 18:02] LABS: ALBUMIN 2.9 gm/dl (3.1-4.5); CREATININE 1.32 mg/dL (0.55-1.02)
--- NOTE | 2017-02-26 18:55 | NUR ---
PT REMAINS AWAKE AND ALERT. A ANDERSON CATHETER HAS BEEN PLACED. PT STATED THAT ABDOMINAL PRESSURE IMPROVED AFTER CATHETER WAS PLACED AND BEGAN TO DRAIN. YARELI CONSTANTINO
[2017-02-26 19:00] LABS: BILIRUBIN NEGATIVE (NEGATIVE); BLOOD TRACE-LYSED (NEGATIVE); CLARITY CLEAR (CLEAR); COLOR YELLOW (YELLOW); GLUCOSE NEGATIVE (NEGATIVE); KETONE NEGATIVE (NEGATIVE); LEUKO ESTERASE TRACE (NEGATIVE); NITRITE POSITIVE (NEGATIVE); PH 5.5 (5.0-9.0); UROBILINOGEN 0.2 E.U./dl (0.2-1.0)
[2017-02-26 19:10] LABS: RBC 0-2 rbc/hpf (0-2)
[2017-02-26 19:11] LABS: BACTERIA 2+
--- NOTE | 2017-02-26 19:50 | NUR ---
PT PROVIDED WITH BOXED LUNCH AT THIS TIME. PT SITTING UP IN BED TO EAT. PT TOLERTING WELL.
[2017-02-26 20:38] VITALS: BP 119/43
--- NOTE | 2017-02-26 20:38 | NUR ---
A 86, admitted to 5E, under the services of BRIANNA Mckinney DO with a diagnosis of acute heart failure, ARF, HX VRE URINE. Chief complaint is since taking the 4th dose of zyvox for UTI, per family pt. has had nausea, dizziness, headache. swelling in feet and general malaise. not voided today.. Patient arrived via stretcher from ER. Monitor applied. Initial assessment completed. Vital signs taken and recorded. BRIANNA MCKINNEY DO notified of admission to the unit. Orders received. See assessment for past medical history, medications and allergies. Patient and/or family oriented to unit. [facility] visitation policy reviewed. Clothing/patient valuable form completed. JAZMINE MUÑOZ
[2017-02-26] MEDS ORDERED: VERAPAMIL HYDR120 M1 PO (20:45)
[2017-02-26] MEDS ORDERED: FORTIFY PO (20:52)
[2017-02-26] MEDS ORDERED: ZYVOX600 MG PO (20:58)
--- NOTE | 2017-02-26 21:35 | NUR ---
CALLED DR. BHAKTA AND NOTIFIED HIM OF PT. ADMIT, CONDITION AND THAT HOME MEDICATIONS HAVE BEEN VERIFIED WITH THE SON. ORDERS TO BE RECIEVED.
[2017-02-27] VITALS: BP 106/48
--- NOTE | 2017-02-27 03:51 | NUR ---
LAB CALLED FLOOR WITH CRITICAL TROPONIN 0.049. CALLED DR. BHAKTA AND NOTIFIED HIM OF THIS AND NO NEW ORDERS RECEIVED.
[2017-02-27 06:17] LABS: BASO % 0.2 % (0.0-1.0); EOS # 0.1 10*3/uL (0.0-0.4); HEMATOCRIT 29.2 % (37.0-47.0); HEMOGLOBIN 8.9 g/dl (12.0-16.0); LYMPH # 1.3 10*3/uL (1.3-4.4); LYMPH % 21.9 % (27.0-41.0); MEAN CELL VOLUME 95.1 fl (81.0-99.0); MEAN CORPUSCULAR HGB CONC 30.5 g/dl (33.0-37.0); MEAN PLATELET VOLUME 9.4 fl (9.6-12.3); MONO # 0.7 10*3/uL (0.1-1.0); MONO % 12.3 % (3.0-9.0); NEUT # 3.8 10*3/uL (2.3-7.9); NEUT % 64.1 % (47.0-73.0); PLATELET COUNT AUTOMATED 332 10*3/uL (130-400); RED BLOOD COUNT 3.07 10*6/uL (4.10-5.10); RED CELL DISTRI WIDTH 15.2 % (0-14.5); WHITE BLOOD COUNT 5.9 10*3/uL (4.8-10.8)
--- NOTE | 2017-02-27 06:33 | NUR ---
LAB CALLED WITH CRITICAL TROPONIN 0.[address] BHAKTA AND NOTIFIED HIM OF THIS AND NO NEW ORDERS AT THIS TIME.
[2017-02-27 06:46] LABS: ALBUMIN 2.9 gm/dl (3.1-4.5); CREATININE 1.23 mg/dL (0.55-1.02); MAGNESIUM 2.4 mg/dL (1.5-2.1); PHOSPHOROUS 3.3 mg/dL (2.5-4.9); POTASSIUM 3.1 mmol/L (3.5-5.1)
[2017-02-27 07:06] LABS: VITAMIN D, 25-HYDROXY 59.7 ng/mL (30-100)
[2017-02-27 07:15] LABS: THYROID STIM HORMONE (HS) 9.14 uIU/ml (0.358-4.75)
[2017-02-27 08:00] VITALS: BP 116/55
--- NOTE | 2017-02-27 11:59 | NUR ---
DR KAISER ANSWERING SERVICE MADE AWARE OF NEW CONSULT ORDER AND STATED THEY WILL NOTIFY THE DRTia LUMBER MATERIAL HANDLER TODAY.
[2017-02-27 12:00] VITALS: BP 118/56
--- NOTE | 2017-02-27 12:00 | NUR ---
DR LOCO MADE AWARE THAT WE NEED WOUND CARE ORDERS FOR PT.
--- NOTE | 2017-02-27 12:29 | NUR ---
DR WILSON MADE AWARE OF NEW CONSULT ORDER.
[2017-02-27 16:00] VITALS: BP 112/38
[2017-02-27 20:00] VITALS: BP 117/69
[2017-02-28] VITALS: BP 111/44
--- NOTE | 2017-02-28 01:15 | NUR ---
IV started left forearm with #22 angiocath after 1st attempts. The IV site was prepped with Chloraprep. Heparin lock attached. Sterile dressing applied. Patient tolerated precedure well. Procedure performed according to [facility] policy & procedure. JAZMINE MUÑOZ
[2017-02-28 06:35] LABS: BASO % 0.2 % (0.0-1.0); EOS # 0.1 10*3/uL (0.0-0.4); EOS % 1.1 % (1.0-4.0); HEMATOCRIT 25.3 % (37.0-47.0); HEMOGLOBIN 7.7 g/dl (12.0-16.0); LYMPH # 1.2 10*3/uL (1.3-4.4); MEAN CELL VOLUME 95.1 fl (81.0-99.0); MEAN CORPUSCULAR HGB 28.9 pg (27.0-31.0); MEAN CORPUSCULAR HGB CONC 30.4 g/dl (33.0-37.0); MEAN PLATELET VOLUME 8.9 fl (9.6-12.3); MONO # 0.7 10*3/uL (0.1-1.0); MONO % 11.7 % (3.0-9.0); NEUT # 3.6 10*3/uL (2.3-7.9); NEUT % 64.5 % (47.0-73.0); PLATELET COUNT AUTOMATED 285 10*3/uL (130-400); RED BLOOD COUNT 2.66 10*6/uL (4.10-5.10); RED CELL DISTRI WIDTH 15.1 % (0-14.5); WHITE BLOOD COUNT 5.6 10*3/uL (4.8-10.8)
[2017-02-28 06:47] LABS: CREATININE 1.29 mg/dL (0.55-1.02); MAGNESIUM 2.1 mg/dL (1.5-2.1); PHOSPHOROUS 3.3 mg/dL (2.5-4.9)
[2017-02-28 06:51] LABS: POTASSIUM 4.2 mmol/L (3.5-5.1)
[2017-02-28 08:00] VITALS: BP 127/55
--- NOTE | 2017-02-28 09:00 | NUR ---
Sheet Metal Superintendent in to talk to patient. Patient states lives at home with son. There are few steps in the home. Physician: doctor from [facility]: mail Home health services: none Patient's level of ADLs: MINIMAL ASSIST Patient has working utilities: all working DME: 2 walkers, stairlift, oxygen Follow-up physician's appointment after d/c: will be made by hospitalist nurse director upon discharge Does patient want to access PORTAL?: no Discharge plan discussed with patient, patient will be going back home with son, will also contact son to make sure patient doesn't need anything at home. SERA SINGH
[2017-02-28 12:00] VITALS: BP 122/50
--- NOTE | 2017-02-28 12:30 | NUR ---
PT MEDICATED WITH ZOFRAN FOR C/O NAUSEA. WILL MONITOR. CALL LIGHT WITHIN REACH
--- NOTE | 2017-02-28 12:53 | NUR ---
ANDERSON CATHETER REMOVED PER DR'S ORDER.
--- NOTE | 2017-02-28 14:22 | NUR ---
PEDRO HACKETT [id number] Please refer to the physician's history and physical for past medical history, comorbid conditions, and allergies. Diagnosis: ACUTE HEART FAILURE ARF Lucas Score: 18,AT RISK WOUND DESCRIPTIONS: Location of the wound: coccyx Type of wound: stage 3 Thickness: Full Size: 1.5cm x 1.0cm x 0.1cm Tunneling: none Undermining: none Sinus Tract: none Presence of Exudate: serosanguineous Amount: Light Color: yellow and red Odor: None Periwound Skin Appearance: Normal Wound edges: approximated Pain (associated with wound): none at time of assessment How does patient state this happened? Pt unsure how this occurred. Location of the wound: right buttock Type of wound: stage 2 Thickness: Partial Size: 0.8cm x 1.2cm x 0.1cm Tunneling: none Undermining: none Sinus Tract: none Presence of Exudate: serosanguineous Amount: Light Color: red Odor: None Periwound Skin Appearance: Normal Wound edges: approximated Pain (associated with wound): none at time of assessment How does patient state this happened? Pt unsure how this occurred. Location of the wound: left buttock Type of wound: stage 2 Thickness: Partial Size: 0.4cm x 0.2cm x 0.1cm Tunneling: none Undermining: none Sinus Tract: none Presence of Exudate: serosanguineous Amount: Light Color: red Odor: None Periwound Skin Appearance: Normal Wound edges: approximated Pain (associated with wound): none at time of assessment How does patient state this happened? Pt unsure how this occurred. Surface the patient is resting on: Position Pro SKIN PREVENTION RECOMMENDATION: 1. Pressure redistribution support surface as appropriate 2. Elevate heels 3. Remove boots/TEDS every shift and reapply 4. Head of bed 30 degrees as tolerated 5. Assess nutrition and hydration 6. Manage moisture 7. Avoid the use of containment devices while in bed 8. Use absorptive products on surfaces limit layers of linens on bed 9. Turn and reposition every 1-2 hours in bed and every 1 hour in chair as tolerated 10. Weight shifts every 15 minutes while up in chair 11. Offloading with pillows or device to keep heels elevated off bed 12. Monitor skin at least every shift 13. Inspect under medical devices twice a day WOUND TREATMENT RECOMMENDATIONS: Cleanse area to coccyx, left and right buttocks with nss and apply sureprep surrounding wounds, vesatel to wound bed, therahoney to wound bed and cover with optifoam sacral gentle.
[2017-02-28 16:00] VITALS: BP 116/57
--- NOTE | 2017-02-28 17:01 | NUR ---
PHYSICAL THERAPY PAtient reports she is too ill and has no controil over her bowels thia date. Thank you for this referal. Sherri barrera,PT
--- NOTE | 2017-02-28 17:41 | NUR ---
PT HAS ONLY URINATED 25CC SINCE ANDERSON CATH REMOVED. I BLADDER SCANNED PT AND IT SHOWED ON 147CC IN HER BLADDER. I NOTIFIED DR Manuel [place] OF THIS.
--- NOTE | 2017-02-28 18:57 | NUR ---
PT DID GET UP TO BEDSIDE COMMODE AND VOIDED 100CC OF URINE.
[2017-02-28 20:00] VITALS: BP 111/41
[2017-03-01] VITALS: BP 113/81
--- NOTE | 2017-03-01 05:01 | NUR ---
PATIENT RESTING IN BED WITH EYES CLOSED. NO SIGNS OR SYMPTOMS OF DISTRESS NOTED. CALL LIGHT IN REACH. WILL CONTINUE TO MONITOR.
[2017-03-01 07:22] LABS: BASO % 0.4 % (0.0-1.0); EOS # 0.1 10*3/uL (0.0-0.4); EOS % 1.6 % (1.0-4.0); HEMOGLOBIN 7.7 g/dl (12.0-16.0); LYMPH # 1.1 10*3/uL (1.3-4.4); MEAN CELL VOLUME 95.4 fl (81.0-99.0); MEAN CORPUSCULAR HGB 29.4 pg (27.0-31.0); MEAN CORPUSCULAR HGB CONC 30.8 g/dl (33.0-37.0); MONO # 0.5 10*3/uL (0.1-1.0); MONO % 10.8 % (3.0-9.0); NEUT # 3.3 10*3/uL (2.3-7.9); NEUT % 64.8 % (47.0-73.0); PLATELET COUNT AUTOMATED 291 10*3/uL (130-400); RED BLOOD COUNT 2.62 10*6/uL (4.10-5.10); RED CELL DISTRI WIDTH 15.1 % (0-14.5)
[2017-03-01 07:38] LABS: CREATININE 1.37 mg/dL (0.55-1.02); POTASSIUM 4.2 mmol/L (3.5-5.1)
[2017-03-01 08:00] VITALS: BP 106/72
--- NOTE | 2017-03-01 11:15 | NUR ---
AT 1111 PT REFUSED SA TX...STATES SHE WANTS TO EAT..FAMILY MEMBER IN ROOM WITH PT AND STATES THEY WILL CALL IF PT WANTS A TX
--- NOTE | 2017-03-01 11:56 | NUR ---
MEDICATED WITH PRN PO NORCO FOR C/O BACK/GENERALIZED PAIN.
[2017-03-01 12:00] VITALS: BP 100/50
--- NOTE | 2017-03-01 14:30 | NUR ---
PRN PO NORCO EFFECTIVE, PER PATIENT.
--- NOTE | 2017-03-01 15:59 | NUR ---
MEDICATED WITH PRN PO DULCOLAX FOR HARD STOOLS/CONSTIPATION.
[2017-03-01 16:00] VITALS: BP 107/46
--- NOTE | 2017-03-01 16:20 | NUR ---
PHYSICAL THERAPY PAtient evalauted on 5, full evaluation to follow. Continue with PT as per plan of care with fall and acute debility precautions. May require SNF for impaired mobility- if patient refuses, home with 24 hour family assist and complete home health services. Patient is moderate complexity via chart review, test and evaluation: [id number]. thank you for this referral. Sherri barrera,PT
--- NOTE | 2017-03-01 19:29 | NUR ---
PATIENT AWAITING DISCHARGE HOME; SON TO COME TONIGHT TO RECEIVE INSTRUCTIONS WITH HER AND TRANSPORT HOME. CYCLE ANALYST REMOVED, HEPLOCK REMOVED. PROBIOTICS FROM HOME RETURNED TO THE PATIENT.
--- NOTE | 2017-03-01 20:15 | NUR ---
Discharge instructions reviewed with patient/family. Patient receptive and verbalizes understanding. Follow-up care arranged. Written instructions given to patient/family. Patient discharged via wheelchair. No signs of any distress or discomfort noted at this time. PHIL ABDUL
== END 2017-03-01 20:15 | disposition home or self-care (01) | DRG 690 ==
LOC: ED 16:39 → 5E 19:45 → EDHOLD 19:45 → 5E 20:09
PROVIDERS: Emergency Medicine; Family Medicine Adult Medicine; Hospitalist; Internal Medicine; Internal Medicine Nephrology; ADMIT Internal Medicine
DX: N30.00 Acute cystitis without hematuria (principal); E44.0 Moderate protein-calorie malnutrition; J96.10 Chronic respiratory failure, unspecified whether with hypoxia or hypercapnia; I11.0 Hypertensive heart disease with heart failure; L89.152 Pressure ulcer of sacral region, stage 2; I50.32 Chronic diastolic (congestive) heart failure; Z68.1 Body mass index [BMI] 19.9 or less, adult; J44.9 Chronic obstructive pulmonary disease, unspecified; E87.6 Hypokalemia; R73.9 Hyperglycemia, unspecified; D72.9 Disorder of white blood cells, unspecified; D72.810 Lymphocytopenia; D72.821 Monocytosis (symptomatic); D64.9 Anemia, unspecified; K21.9 Gastro-esophageal reflux disease without esophagitis; I25.10 Atherosclerotic heart disease of native coronary artery without angina pectoris; M54.9 Dorsalgia, unspecified; K57.90 Diverticulosis of intestine, part unspecified, without perforation or abscess without bleeding; G89.29 Other chronic pain; E55.9 Vitamin D deficiency, unspecified; Z16.21 Resistance to vancomycin; K59.09 Other constipation; L40.9 Psoriasis, unspecified; Z87.01 Personal history of pneumonia (recurrent); Z87.440 Personal history of urinary (tract) infections; Z88.6 Allergy status to analgesic agent; Z88.5 Allergy status to narcotic agent; Z90.49 Acquired absence of other specified parts of digestive tract; Z98.891 History of uterine scar from previous surgery; Z87.891 Personal history of nicotine dependence; Z82.49 Family history of ischemic heart disease and other diseases of the circulatory system; Z83.3 Family history of diabetes mellitus; Z80.9 Family history of malignant neoplasm, unspecified; Z79.82 Long term (current) use of aspirin; Z79.899 Other long term (current) drug therapy

== ENCOUNTER 2017-03-02 21:31 | Emergency (ER) | payer OTHER ==
[~2017-03-02] VITALS: Ht 149.8 cm; Wt 63.5 kg
[~2017-03-02 21:31] MED LIST changes: +FORTIFY PO; +VERAPAMIL HYDR120 M1 PO; +ZYVOX600 MG PO
== END 2017-03-03 00:26 | disposition home or self-care (01) ==
LOC: ED 21:31
DX: S51.011A Laceration without foreign body of right elbow, initial encounter (principal); S09.90XA Unspecified injury of head, initial encounter; M25.511 Pain in right shoulder; J44.9 Chronic obstructive pulmonary disease, unspecified; Z87.891 Personal history of nicotine dependence; Z90.49 Acquired absence of other specified parts of digestive tract; Z98.890 Other specified postprocedural states; Z79.82 Long term (current) use of aspirin; Z79.899 Other long term (current) drug therapy; Z88.5 Allergy status to narcotic agent; Z99.81 Dependence on supplemental oxygen; W18.09XA Striking against other object with subsequent fall, initial encounter; Y93.89 Activity, other specified; Y92.090 Kitchen in other non-institutional residence as the place of occurrence of the external cause; Y99.9 Unspecified external cause status

== ENCOUNTER 2018-01-04 03:56 | Inpatient (IN) | payer OTHER ==
[2018-01-04] VITALS (44 sets, daily range): BP systolic 63–197; BP diastolic 39–79
[~2018-01-04] VITALS: Wt 33.1 kg
--- NOTE | ~2018-01-04 | PR ---
[place], [place] PROGRESS NOTE NAME: PEDRO HACKETT [facility] LLCT #: [id number] UNIT #: [id number] ROOM: [facility] DOCTOR: FRITZ YUSUF MD,SUKHWINDER BIRTHDATE: [birth year] DOS: 01/05/2018 SUBJECTIVE: The patient was noted on mechanical ventilator, getting sedation. The patient with chest pain decreased. The patient was noted to arousal partially and comfortable to vocal commands. The feeding of the patient was placed on hold because of the NG tube was noted in place. She has been noted without any acute new hemodynamic instability. She is receiving vasopressor therapy. The patient's Levophed dose has been gradually decreased. The patient maintain a mean arterial pressure of 65 or greater. The patient's blood pressure responded to the treatment with Levophed. She has not been noted any new acute hemodynamic instability or respiratory complications. She remains on the mechanical ventilator 40% oxygen. The patient was not noted excessive secretion production. She was also started on Lasix yesterday for management of acute congestive heart failure with bilateral pleural effusions. OBJECTIVE: GENERAL: The patient has been noted comfortable at this time, was noted partially awake. The patient current sedation with Diprivan. She does not follow vocal commands, but difficult to assess the patient with a previous mental status as well. VITAL SIGNS: Low-grade fever noted. The patient with rectal temperature was noted as 99.6; otherwise, remains afebrile. Respiratory rate range between 14-16, heart rate 59-62, blood pressure of 84/56 to 101/58. The patient's intake was 1500, output 1275 mL. Pulse oxygen saturation is 99%-100% saturation, 40% oxygen. HEENT: Examination shows head was atraumatic. Eyes nonicterus. NECK: Supple. Head was atraumatic. CARDIOVASCULAR: S1, S2 is audible. LUNGS: The patient was noted with decreased breath sounds without any wheezing or crackles heard today. Breath sounds still noted decreased lower portion of the lungs. ABDOMEN: Flat, soft, nontender. EXTREMITIES: Without acute edema. CENTRAL NERVOUS SYSTEM: The patient at this time noted moving upper and lower extremities all well. MUSCULOSKELETAL: Mild senile kyphosis for her age. VISIBLE SKIN: No lesions or rashes. LABORATORY DATA: Endotracheal aspirate, Gram stain, few white blood cells, rare epithelial cells, no organisms seen, no bacterial growth. Arterial blood gas this morning, pH of 7.51, pCO2 of 41, pO2 of 96, 40% oxygen is control, volume control mechanical ventilation, tidal volume 450, PEEP of 5.0. CBC today: WBC count 7.7, hemoglobin 9.2, hematocrit 29.2, platelet count was normal. CMP this morning, BUN 32, creatinine 1.60, glucose 170. Sodium 135, potassium 3.4, CO2 34. Total protein of 2.9. Prealbumin was pending. TSH noted mildly elevated at 10.10. IMPRESSION: The patient will be currently noted with findings of: 1. Acute congestive heart failure, bilateral pleural fluid as well as acute kidney injury. [place], [place] PROGRESS NOTE NAME: PEDRO HACKETT UNIT #: [id number] ROOM: [facility] DOCTOR: FRITZ YUSUF MD,[facility] BIRTHDATE: [birth year] 2. Suspected acute pneumonia. The patient treated with the antibiotics as well. 3. Elderly age. 4. The patient with protein calorie malnutrition suspicion as well, pending prealbumin level. 5. Mildly prominent troponin. PLAN OF MANAGEMENT: The patient at this time significance was unknown. Plan of management, continue diuretic, close monitor BUN and creatinine. Chest x-ray of the patient was done this morning, which was reviewed persistent small bilateral pleural fluid. The endotracheal tube for this patient noted 1.5 cm above the calos level, mild pulmonary venous congestion. The NG tube was noted in the appropriate level on this current chest x-ray. The endotracheal tube will be pulled back about 2 cm. The sedation has been discontinued for this patient and started on CPAP 5, pressure support of 10, getting tidal volume about 350-400 mL with a respiratory rate about 25. Once the patient was noted more awake, the patient with complete sedation discontinuation. She will be started on the CPAP of 5, pressure support of 10 at that time. The patient to continue participation liberation of mechanical ventilation today. Continuation of bronchodilator with oxygen supplementation as well. Usual care, other supportive therapy, plan of management. Monitor BUN and creatinine closely. Recurrent use of diuretic and pleural fluids. No intervention. The patient needs to be done for the pleural fluid. Other supportive therapy, plan of management and care plan. Resuming the nutrition support. The NG tube was noted appropriate in place. Other additional treatment changes will be done based on the progression of the illness. Pulmonary critical management, total time for pulmonary critical management for this patient is 38 minutes. SUKHWINDER HU MD CM:PNTRANS [id number] SUKHWINDER YUSUF MD 01/05/18 1458 interface
--- NOTE | ~2018-01-04 | EKG ---
[place], [place] ELECTROCARDIOGRAM REPORT NAME: PEDRO HACKETT UNIT #: [id number] ROOM: 510 DOCTOR: NICOLASA DRAFT REPORT BIRTHDATE: [birth year] [facility] Test Date: 2018-01-11 Test Time: 21:07:51 Pat Name: PEDRO HACKETT Department: Room: 510 1 Gender: F Freight Rate Analyst: ANTHONY : 1930 Requested By: LEOLA BATES Order Number: [id number] Reading MD: Arthur Rhodes MD Measurements Intervals [place] Rate: 63 P: 8 SD: 162 QRS: 44 QRSD: 147 T: 20 QT: 392 QTc: 402 Interpretive Statements Sinus rhythm Atrial premature complexes Probable left atrial enlargement LVH with IVCD and secondary repol abnrm Compared to ECG 01/04/2018 08:25:05 T-wave abnormality no longer present Prolonged QT interval no longer present Electronically Signed On 01-12-2018 7:06:23 PDT by Arthur Rhodes MD CM:EKGRPT:ELECTROCARDIOGRAM REPORT 06 [id number] LEOLA KAMINSKI DRAFT REPORT LEOLA BATES DO
--- NOTE | ~2018-01-04 | EKG ---
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
--- NOTE | ~2018-01-04 | PR ---
[place], [place] PROGRESS NOTE NAME: PEDRO HACKETT UNIT #: [id number] ROOM: [facility] DOCTOR: SUKHWINDER HERNANDEZ MD BIRTHDATE: [birth year] DOS: 01/08/2018 SUBJECTIVE: The patient noted comfortable at this time, successfully liberated from mechanical ventilator, noted fully awake and alert, starting clear liquid diet, later on breakfast, which has been tolerated by the patient very well. The patient has not been noted any symptoms of hemodynamic instability at the present time. She was noted fully awake, alert, and cooperative on examination. Denies symptoms of abdominal pain, nausea, vomiting, diarrhea or headache. Remaining systems were reviewed. They were noted all negative. OBJECTIVE: VITAL SIGNS: For the patient which has been recorded showed the temperature noted normal, respiratory rate 23-26, heart rate 57-58, blood pressure 159/64-160/50. HEENT: Examination shows head was atraumatic. Eyes nonicterus. NECK: Supple. CARDIOVASCULAR: S1, S2 is audible. LUNGS: Noted without any crackles. There was no wheezing. ABDOMEN: Soft, nontender. Bowel sounds are present. EXTREMITIES: Without any acute edema. IMPRESSION: 1. The patient with acute congestive heart failure, bilateral pleural fluid, which is improving gradually. 2. Improving acute hypoxic respiratory failure as well. 3. The patient with chronic obstructive pulmonary disease history as well. 4. Urinary tract infection extended-spectrum beta-lactamase, gram-negative infection. PLAN OF MANAGEMENT: Completion of the antibiotics for urinary tract infection. Continue the BiPAP intermittent; during the day, the patient has tolerated and continue at nighttime. Oxygen supplementation, other time. Continue bronchodilators. Continue to gradually reduce the steroid dose for exacerbation of COPD management. The dose will be decreased to 30 mg daily today. [place], [place] PROGRESS NOTE NAME: PEDRO HACKETT UNIT #: [id number] ROOM: [facility] DOCTOR: SUKHWINDER HERNANDEZ MD BIRTHDATE: [birth year] SUKHWINDER HU MD CM:PNTRANS [id number] SUKHWINDER YUSUF MD 01/08/18 1645 interface
--- NOTE | ~2018-01-04 | PR ---
[place], [place] PROGRESS NOTE NAME: [facility]ACK[facility]T [facility] [id number] UNIT #: [id number] ROOM: 510 DOCTOR: FRITZ YUSUF MD,SUKHWINDER BIRTHDATE: [birth year] DOS: 01/10/2018 SUBJECTIVE: She was noted comfortable at this time, sitting on the chair, eating food, using oxygen supplementation nasal cannula. BiPAP was used for a few hours at night. She has not been noted symptoms of chest pain or hemoptysis. The patient refusing to go to longterm facility. OBJECTIVE: VITAL SIGNS: Normal temperature, respiratory rate 24, heart rate 56, blood pressure 167/65. The pulse oxygen saturation on 5 liter nasal cannula 99% saturation at rest noted. HEAD, EYES, EARS, NOSE, AND THROAT: Age-related changes. NECK: Supple. CARDIOVASCULAR: S1, S2 is audible. LUNGS: Noted without any wheezing or crackles. ABDOMEN: Soft, nontender. EXTREMITIES: Without any acute edema. IMPRESSION: 1. Acute urinary tract infection, ESBL producing species, gram-negative infection. 2. Improving acute respiratory failure. 3. Small bilateral pleural fluid secondary to acute congestive heart failure. 4. Chronic obstructive pulmonary disease exacerbation, improved. 5. Debility. PLAN OF TREATMENT: Continue current plan of management, could be transferred from the Intensive Care Unit to telemetry floor with continue other therapy. Usual care, other supportive plan of management and treatments. SUKHWINDER HU MD CM:PNTRANS [id number] SUKHWINDER YUSUF MD 01/19/18 0902 interface
--- NOTE | ~2018-01-04 | PR ---
[place], [place] PROGRESS NOTE [facility] [id number] UNIT #: [id number] ROOM: 510 DOCTOR: FRITZ YUSUF MD,SUKHWINDER BIRTHDATE: [birth year] DOS: 01/12/2018 SUBJECTIVE: The patient was noted comfortable at this time without any acute distress, doing well, participating in physical therapy. Denies symptoms of acute shortness of breath, coughing or chest pain. There was no pain of the lower extremities. OBJECTIVE: VITAL SIGNS: Normal temperature, respiratory rate 20, heart rate 58, blood pressure 116/44. Pulse ox saturation on 4 liters nasal canula 97% saturation. HEENT: No new change. NECK: Supple. CARDIOVASCULAR: S1, S2 is audible. LUNGS: The patient was noted without any wheezing or crackles. ABDOMEN: Soft, nontender. EXTREMITIES: The patient with chronic loss of muscle mass without any edema. IMPRESSION: Resolved acute urinary tract infection, ESBL, improving. Congestive heart failure, bilateral pleural fluid, chronic obstructive pulmonary disease as well. PLAN OF TREATMENT: No changes in the plan of care at this time. Continue the patient's current therapy, plan and management previously in progress. Other usual care therapy, plan of management and treatments. SUKHWINDER HU MD CM:PNTRANS [id number] SUKHWINDER YUSUF MD 01/12/18 1619 interface
--- NOTE | ~2018-01-04 | CON ---
[place], [place] REPORT OF CONSULTATION NAME: PEDRO HACKETT UNIT #: [id number] ROOM: [facility] DOCTOR: SUKHWINDER HERNANDEZ MD BIRTHDATE: [birth year] DOS: 01/04/2018 PULMONARY CONSULTATION, EVALUATION, MANAGEMENT CONSULTATION REQUESTED BY: Hospitalist Service, Dr. Mirna Mary. REASON FOR CONSULTATION: To assess the patient current acute respiratory failure. HISTORY OF PRESENT ILLNESS: The history of the patient reviewed, which were done documented on this admission, by the other physician as well as the nursing note and some discussion with the patient's son as well, who was present today. This is an 87-year-old white female patient who was brought to the hospital. The patient has been noted with symptoms of increased nasal congestion with shortness of breath. The patient's oxygen saturation was noted significantly worse. EMS called to assess the patient on 5 liters of home oxygen supplementation, saturation was noted at 87%. Shortness of breath has been noted. The patient has increased nasal congestion, chest congestion from the past 3 days as per son. The patient has been noted progressive weakness and fatigue. She has not been reported edema of the lower extremity. There were symptoms of wheezing reported. The patient was admitted to the Intensive Care Unit for further medical management and noted transit hypotension. The patient does not require any acute intervention initially and also noted with persistent shortness of breath. The patient with increased work of breathing and tachypnea. The patient was decided to be intubated because of current respiratory status. The patient with excessive work of breathing with a full code. Prior to intubation, the patient assessment discussed with Dr. Mirna Mary, the patient's son, he was aware of and also consented for the intubation. The patient was successfully intubated at this time and noted on mechanical ventilation, assist volume, volume control mechanical ventilation. Review of systems could not be completed since the patient intubated, noted on mechanical ventilation. PAST MEDICAL HISTORY: 1. Coronary artery disease. 2. Congestive heart failure, diastolic dysfunction. 3. Chronic hypoxic respiratory failure, use of high flow oxygen up to 5 liters nasal cannula from home. 4. Stage 2 coccygeal ulcer. 5. History of psoriasis. 6. Vitamin D deficiency. 7. COPD. 8. Essential hypertension. PAST SURGICAL HISTORY: Reported: 1. . 2. Cholecystectomy. 3. Appendectomy. [place], [place] REPORT OF CONSULTATION [id number] UNIT #: [id number] ROOM: [facility] DOCTOR: FRITZ YUSUF MD,SUKHWINDER BIRTHDATE: [birth year] SOCIAL HISTORY: The patient lives at home. She has known history of past tobacco use, pack or less of cigarettes per day, previously, which was discontinued several years ago. No history of alcohol use, illicit drug use. FAMILY HISTORY: Father with complication of myocardial infarction. Mother at 55 years old from unknown cancer, it was also reported with comorbid condition of heart problem and diabetes mellitus. MEDICATIONS: Noted use of Advair, ferrous sulfate, citalopram, vitamin D, aspirin, Lasix, multivitamin, DuoNeb, Spiriva, verapamil, and oxygen. DRUG ALLERGIES: 1. CODEINE CAUSING VOMITING. 2. MORPHINE CAUSING SKIN RASH. 3. CHANTIX. PHYSICAL EXAMINATION: GENERAL: An 87-year-old female who has been currently intubated on mechanical ventilator, noted to be quite fail at time of the assessment. Height of 4 feet 11 inches, weight of 43 kilogram, BMI 19.4. VITAL SIGNS: For the patient which has been recorded shows temperature noted as a T-max of 99.4 degree Fahrenheit, respiratory rate was noted at 32. Currently, on the mechanical ventilation about 18. Heart rate of 86-75, blood rather 86/50. Intake for the patient and output so far not been recorded. HEENT: The patient currently intubated. Some muscles of mastication with age-related changes. Head was atraumatic. Eyes nonicterus. The patient is intubated. Orogastric tube was also placed. NECK: Supple. CARDIOVASCULAR: S1, S2 audible. LUNGS: Noted with decreased breath sounds in the lung. The patient noted general, especially in the lower lungs. There were no crackles heard. There was no wheezing heard. ABDOMEN: Soft, nontender, flat. EXTREMITIES: Loss of muscle mass. MUSCULOSKELETAL: Mild senile kyphosis, otherwise normal. VISIBLE SKIN: No lesions or rashes. CENTRAL NERVOUS SYSTEM: No gross focal neurologic deficit. LABORATORY DATA: CBC on 01/04/2018, this morning, hemoglobin 10. WBC count normal, platelet count was normal. Lactic acid 1.0 this morning. BMP this morning; BUN 22, creatinine 1.16, glucose 104, CO2 44, chloride of 90. The arterial blood gas 01/04/2018, pH of 7.32, pCO2 of 68, pO2 of 95.3. Arterial blood gas, which was done at 4:45 in the Emergency Room, pH 7.37, pCO2 of 70, pO2 61.2. The chest x-ray of patient shows haziness with possibility to pleural fluid and infiltration of noted in the right mid lung and the right lower lobe. Chest x-ray post-intubation noted. Endotracheal tube was noted in appropriate position. Endotracheal tube were noted 1.5 cm above the calos level. NG tube were noted in the stomach. The ultrasound of the chest performed personally shows small bowel to moderate bilateral pleural fluid noted on ultrasound. The patient at the bedside. [place], [place] REPORT OF CONSULTATION NAME: PEDRO HACKETT UNIT #: [id number] ROOM: [facility] DOCTOR: SUKHWINDER HERNANDEZ MD BIRTHDATE: [birth year] IMPRESSION: 1. The patient will be admitted to the hospital noted with acute congestive heart failure with interstitial edema. The patient congestive heart failure with possibility of acute pneumonia superimposed would be considered. 2. Acute exacerbation of chronic obstructive pulmonary disease was also seen. 3. Evidence of severe protein-calorie malnutrition status as well. 4. The patient with history of coronary artery disease and multiple medical illnesses. 5. Mild acute kidney patient, required most likely prerenal azotemia. PLAN OF MANAGEMENT: 1. Avoid any further use of the fluid. The patient given 1 liter of fluid early because hypertension. If the hypertension recurrent, she will be started on Levophed to maintain a mean arterial pressure of 65 or greater. Schwarz cultures were ordered and obtained. The patient has been started on broad spectrum intravenous antibiotics. The patient seen by Dr. Mirna Mary, that will be continued. A triple antibiotic the de-stimulation antibiotic will be done. Lasix 40 mg daily, prealbumin level was ordered, nutrition support was ordered. Ventilator bundle management. All initiated for the patient including the use of the Peridex rinse. Arterial blood gas, the patient will be repeated and further adjustment could be done. The patient was started initially of ventilator setting of tidal volume 450, PEEP of 5, respiratory rate 14 at 60% oxygen. The patient would not require any further additional change in the treatment. The daily lab was ordered. Troponins will be cycled as well. Electrocardiogram will be monitored as well. Further change in treatment done according for DVT prophylaxis. Total time spent in pulmonary critical management this patient was patient 40 minutes prior to the statement. The assessment and management were discussed with Dr. Mirna Mary personally. SUKHWINDER HU MD CM:CONSTR:REPORT OF CONSULTATION 1203 01/04/18 [id number] interface
--- NOTE | ~2018-01-04 | PROC NOTE ---
[place], [place] PROCEDURE NOTE NAME: PEDRO HACKETT UNIT #: [id number] ROOM: [facility] DOCTOR: BRIANNA MAHAN DO BIRTHDATE: [birth year] DOS: 01/04/2018 INTUBATION NOTE DATE OF PROCEDURE: 01/04/2018 TIME: 0900. INDICATION: Respiratory distress. RESIDENT: Bibiana Peraza DO DESCRIPTION OF PROCEDURE: I was performing the procedure. A timeout was completed, verifying correct patient, procedure, site, positioning, and the patient was placed in flat position. Sedation was obtained using 20 of etomidate and 100 of succinylcholine. The patient was easily ventilated with Ambu bag. A MAC 4 blade was used and inserted into the oropharynx at which time the vocal cords were viewed. A 7.5 Welsh endotracheal tube was inserted and visualized going through the vocal cords. Stylet was removed. Colorimetric change was visualized on the CO2 monitor. Breath sounds were heard in both lung waterman. Endotracheal tube was placed at 22 at the lip. I performed the procedure myself. Chest x-ray was ordered to assess for pneumothorax and endotracheal tube placement. ESTIMATED BLOOD LOSS: None. The patient tolerated the procedure well, no complications. BRIANNA MAHAN DO CM:PROCNOTE:PROCEDURE NOTE [id number] BRIANNA MAHAN DO
--- NOTE | ~2018-01-04 | PR ---
[place], [place] PROGRESS NOTE NAME: PEDRO HACKETT UNIT #: [id number] ROOM: 510 DOCTOR: SUKHWINDER HERNANDEZ MD BIRTHDATE: [birth year] DOS: 01/11/2018 SUBJECTIVE: The patient was noted comfortable at this time, resting comfortably, using oxygen supplementation, nasal cannula. Denies symptoms of acute shortness of breath, coughing, chest pain or sputum expectoration. The patient does not wish to go to nursing facility. She has been started on physical therapy and currently transferred to a telemetry floor. OBJECTIVE: VITAL SIGNS: For the patient which has been recorded showed the temperature noted as normal. The respiratory rate of the patient recorded as 20, heart rate of 50, blood pressure 153/59 and 157/47. Pulse oxygen saturation of the patient noted on 4 liters nasal cannula 92% saturation. HEENT: Head was atraumatic. Eye nonicterus. NECK: Supple. CARDIOVASCULAR: S1, S2 is audible. LUNGS: Noted without any wheeze or crackles. ABDOMEN: Soft and nontender. EXTREMITIES: Without any acute edema. IMPRESSION: 1. The patient who has been currently noted with progressive resolution of acute respiratory failure and acute urinary tract infection, already treated 2. Acute exacerbation of chronic obstructive pulmonary disease, which has been noted complete resolution. 3. Small bilateral pleural fluid with congestive heart failure and diastolic dysfunction. However, debility with multiple medical illnesses, slowly improving. PLAN OF MANAGEMENT: Discontinue Solu-Medrol today. Continuation of other therapy, plan of management. The patient has been in progress. Discharge planning could be started possible potential discharge home setting with the patient with home health nursing staff based on the patient's preference. [place], [place] PROGRESS NOTE NAME: PEDRO HACKETT UNIT #: [id number] ROOM: 510 DOCTOR: SUKHWINDER HERNANDEZ MD BIRTHDATE: [birth year] SUKHWINDER HU MD CM:PNTRANS [id number] SUKHWINDER YUSUF MD 01/19/18 0904 interface
--- NOTE | ~2018-01-04 | PR ---
[place], [place] PROGRESS NOTE NAME: [facility] [id number] UNIT #: [id number] ROOM: 510 DOCTOR: FRITZ YUSUF MD,SUKHWINDER BIRTHDATE: [birth year] DOS: 01/07/2018 PULMONARY CRITICAL CARE EVALUATION AND MANAGEMENT SUBJECTIVE: The patient was seen and examined on 01/07/2018. The patient remains on the mechanical ventilator. The patient was continued on Haldol treatment that has been ordered for the patient as needed. She has been noted more interactive and cooperative on examination. Awake and alert this morning. She has not been noted any hemodynamic instability. The patient has not been noted any symptoms of respiratory distress. Currently, the patient was improved for free water supplementation as well that was continued from the orogastric tube. She has been continued CPAP motor mechanical ventilation, CPAP 5, pressure support of 15 in the last 24 hours. The tidal volume noted 350-400 mL with that. Later on, the pressure support has been decreased to 10 cm of water. The tidal volume noted with that 350 mL. She was seen this afternoon for further assessment of possible consideration of liberation from mechanical ventilation. PHYSICAL EXAMINATION: VITAL SIGNS: For the patient which has been recorded shows temperature noted normal, respiratory rate of 15-26 previously. Heart rate was a 50-73 with sinus bradycardia. The blood pressure 155/55-148/73. The intake for the patient is 2760 mL. Output was 1100 mL. Pulse oxygen saturation noted as 96% saturation. HEENT: Examination shows the patient is intubated, later on the liberation of mechanical ventilation was done in my presence. The patient has been started on BiPAP, noted awake and alert, cooperative and able to speak normally with that. The orogastric tube is left in place. CARDIOVASCULAR: S1, S2 audible. LUNGS: Noted free of any wheezing or crackles. ABDOMEN: Soft, nontender. Bowel sounds present. EXTREMITIES: Without any acute edema. SKIN: No lesions or rashes. MUSCULOSKELETAL: Without any acute deformities. CENTRAL NERVOUS SYSTEM: Appeared to be nonfocal and intact. LABORATORY DATA: Arterial blood gas of the first one done this morning on CPAP 5, pressure support of 15, 40% oxygen, pH of 7.43, pCO2 of 56, pO2 61.5. The arterial blood gas 45% oxygen. Later on with the CPAP of 5, pressure support of 10, 2 hours later, pH of 7.42, pCO2 of 57.8, pO2 84. The BMP of patient that was done this morning, BUN 31, creatinine 1.17. Glucose 159. CO2 35. CBC this morning, WBC count 11.1, hemoglobin 8.6, hematocrit 28.9, and platelet count 147,000. IMPRESSION: 1. The patient accessed for liberation of mechanical ventilation. 2. Bilateral pleural fluid with previous acute congestive heart failure seemed to be better. There was no pulmonary venous congestion noted. Small bilateral pleural fluid noted. 3. Resolving intravascular volume depletion, congestive heart failure with the free water supplementation. [place], [place] PROGRESS NOTE NAME: PEDRO HACKETT UNIT #: [id number] ROOM: [facility] DOCTOR: FRITZ YUSUF MD,SUKHWINDER BIRTHDATE: [birth year] 4. Moderate protein-calorie malnutrition. 5. Elderly status. 6. Urinary tract infection with ESBL producing E. coli, treated with the antibiotics. 7. Acute pneumonia, responding to treatment with gram-negative infection management as well. PLAN OF MANAGEMENT: The patient was be continued the BiPAP setting of 28/03. Oxygen supplementation gradually decreased. Continue feeding with orogastric tube as well. N.p.o. past midnight. Reassess the patient tomorrow prior to consideration of an oral nutrition support. Bronchodilator to be continued as previously. Antibiotic to be continued. Other additional treatment changes to be made based on progression of the illness. Total time in pulmonary critical and management was 44 minutes. SUKHWINDER HU MD CM:PNTRANS [id number] SUKHWINDER YUSUF MD 01/19/18 0858 interface
--- NOTE | ~2018-01-04 | PR ---
[place], [place] PROGRESS NOTE NAME: PEDRO HACKETT UNIT #: [id number] ROOM: [facility] DOCTOR: FRITZ YUSUF MD,SUKHWINDER BIRTHDATE: [birth year] DOS: 01/09/2018 SUBJECTIVE: The patient was noted awake and alert. She is using oxygen supplementation this morning, intermittent BiPAP use in the day, continue at nighttime. There were no symptoms of coughing or acute shortness of breath. PHYSICAL EXAMINATION: VITAL SIGNS: Normal temperature, respiratory rate 22, heart rate 73, blood pressure 130/70. Pulse oxygen saturation of the patient on 5 liters nasal cannula 96% saturation. HEENT: Head was atraumatic. Eyes nonicterus. NECK: Supple. CARDIOVASCULAR: S1, S2 is audible. LUNGS: Without any wheezing or crackles. ABDOMEN: Soft, nontender. EXTREMITIES: Without acute edema. LABORATORY DATA: CBC: Normal WBC count and platelet count, hemoglobin 10. BMP of the patient on 01/09/2018, normal BUN and creatinine. CO2 of 37. IMPRESSION: The patient with improving acute respiratory failure progressively with an acute pneumonia, urinary tract infection with severe debility, the patient with advanced age. PLAN OF TREATMENT: The patient may benefit from physical therapy and occupation therapy. Possible consideration of longterm facility as well. No other changes in the treatment will be done. After completion of antibiotic for 7 for urinary tract infection, the Zosyn will be discontinued. SUKHWINDER HU MD CM:PNTRANS [id number] SUKHWINDER YUSUF MD 01/09/18 1620 interface
--- NOTE | ~2018-01-04 | EKG ---
[place], [place] ELECTROCARDIOGRAM REPORT NAME: PEDRO HACKETT UNIT #: [id number] ROOM: [facility] DOCTOR: NICOLASA DRAFT REPORT BIRTHDATE: [birth year] [facility] Test Date: 2018-01-04 Test Time: 04:30:30 Pat Name: PEDRO HACKETT Department: ER Room: Gender: F Draw Frame Operator: : 1930 Requested By: JAKE HUANG Order Number: [id number] Reading MD: Arthur Rhodes MD Measurements Intervals [place] Rate: 62 P: -14 SC: 153 QRS: 56 QRSD: 115 T: 18 QT: 406 QTc: 413 Interpretive Statements Sinus rhythm Atrial premature complexes Left ventricular hypertrophy Nonspecific T abnrm, anterolateral leads possibly related to LVH Electronically Signed On 01-04-2018 4:29:07 PDT by Arthur Rhodes MD CM:EKGRPT:ELECTROCARDIOGRAM REPORT [id number] JAKE KAMINSKI DRAFT REPORT JAKE HUANG DO
--- NOTE | ~2018-01-04 | PR ---
[place], [place] PROGRESS NOTE [id number] UNIT #: [id number] ROOM: [facility] DOCTOR: FRITZ YUSUF MD,SUKHWINDER BIRTHDATE: [birth year] DOS: 01/06/2018 PULMONARY CRITICAL CARE EVALUATION AND MANAGEMENT SUBJECTIVE: The patient was started on CPAP 5, pressure support of 15. Yesterday, the patient was noted tachypnea later part of the day. She was started on the Haldol for sedation, remains off for the patient in the form of the Diprivan. The patient has been ordered Ativan by the primary care attending. The patient was given a dose of Ativan this morning. Only few doses of Haldol was given for this patient from yesterday. She has not been noted any hemodynamic instability, except mild bradycardia noted, which is sinus bradycardia this morning. She has been currently noted sedated as she had received the Ativan 0.5 mg this morning. The patient continues on the CPAP mechanical ventilation upper and lower tidal volume than yesterday. The patient was given 500 mL of normal saline at this time because of decreased urinary output for this patient. She has not been given any further doses of Lasix. The feeding was continued, currently getting Pulmocare 40 mL an hour. The patient has tolerated without any acute residuals. OBJECTIVE: VITAL SIGNS: Blood pressure noted 99.4 degree Fahrenheit, respiratory rate of 20-22. Heart rate 57-78, blood pressure 138/49-178/63 previously. Intake 1030 mL, 954 mL output. The pulse ox saturation on 35% oxygen noted as 95% saturation. HEENT: The patient remains intubated orally. Endotracheal tube/orogastric tube is in place. NECK: Supple. Head was atraumatic. Eyes nonicterus. CARDIOVASCULAR: S1, S2 was audible. LUNGS: The patient was noted with decreased breaths in lower portion of the lung. There was no wheezing or crackles heard. ABDOMEN: Soft, nontender, bowel sounds present. EXTREMITIES: The patient was noted without any acute edema. VISIBLE SKIN: No lesions or rashes. MUSCULOSKELETAL: Without any deformities. LABORATORY DATA: Reviewed for this patient, endotracheal aspirate culture. The patient noted no bacterial growth from . BMP of the patient this morning, BUN 33, creatinine of 1.44. Glucose 153. CO2 of 36. Albumin 2.7. Urine culture for the patient noted with ESBL isolation as having growth. CBC on 01/06/2018, WBC count 12.3, hemoglobin 8.8, hematocrit 29.5, platelet count of 246,000. Arterial blood gas this morning: CPAP 5, pressure support of 15, pH 7.43, pCO2 of 56, pO2 71 on 35% oxygen intake. Blood culture showed no bacterial growth on 01/04/2018. The chest x-ray for the patient was not done today. Ultrasound of the chest was performed this morning, still noted with small bilateral pleural fluid without any progression. Chest x-ray that was done yesterday was noted with clearing up of the pleural fluid of pulmonary infiltration. IMPRESSION: 1. The patient with acute respiratory failure. [place], [place] PROGRESS NOTE NAME: PEDRO HACKETT UNIT #: [id number] ROOM: [facility] DOCTOR: FRITZ YUSUF MD,SUKHWINDER BIRTHDATE: [birth year] 2. Acute congestive heart failure was also noted on this admission, most likely related to the patient to the aortic stenosis. The patient with the diastolic dysfunction. 3. The patient with acute pneumonia, suspected, the patient is currently improving. 4. Elderly status. Protein-calorie malnutrition status. 5. Current sedation was noted at this time. 6. ESBL isolation from the urinary tract as well. 7. Acute exacerbation of chronic obstructive pulmonary disease. PLAN OF MANAGEMENT: The patient Ativan dose has been discontinued to improve the interaction and to wake with just use of the Haldol, which has been ordered 2.5 mg. Every 2 hours, the dose could be changed based on the needs and assess for mental status. Because of sedation, the patient cannot be accessed ____ readiness for liberation of mechanical ventilation. The wakefulness will be monitored. She does have signs of respiratory distress. Continue maximum nutrition support. Continuation ventilator bundle management. Discontinuation of the vancomycin because of lack of supportive issues as the patient with evidence of MRSA infection. Continue Zosyn for the management of ESBL urinary tract infection. Solu-Medrol, the patient currently being administered at 60 mg b.i.d. The patient will be decreased to 30 mg b.i.d. because of elevation of BUN and creatinine that would also be helpful. Free water supplementation was ordered for the patient as well. Other supportive plan of management and care plan for the patient to be ordered accordingly. All other supportive plan of management care for the patient will be continued. Assess the patient readiness liberation from mechanical ventilator upon improvement in mental status and if the pressure support for the patient could be decreased to 10 cm of water for the patient with appropriate ventilatory changes. Total time in pulmonary critical college management was 35 minutes. SUKHWINDER HU MD CM:PNTRANS [id number] SUKHWINDER YUSUF MD 01/06/184 interface
[2018-01-04 04:33] LABS: BASO % 0.4 % (0.0-1.0); EOS # 0.2 10*3/uL (0.0-0.4); EOS % 2.1 % (1.0-4.0); HEMATOCRIT 33.8 % (37.0-47.0); LYMPH # 1.7 10*3/uL (1.3-4.4); LYMPH % 19.2 % (27.0-41.0); MEAN CELL VOLUME 94.9 fl (81.0-99.0); MEAN CORPUSCULAR HGB 28.1 pg (27.0-31.0); MEAN CORPUSCULAR HGB CONC 29.6 g/dl (33.0-37.0); MONO # 0.8 10*3/uL (0.1-1.0); MONO % 8.7 % (3.0-9.0); NEUT # 6.2 10*3/uL (2.3-7.9); NEUT % 69.3 % (47.0-73.0); PLATELET COUNT AUTOMATED 330 10*3/uL (130-400); RED BLOOD COUNT 3.56 10*6/uL (4.10-5.10); RED CELL DISTRI WIDTH 13.7 % (0-14.5)
[2018-01-04 04:48] LABS: ALBUMIN 3.5 gm/dl (3.1-4.5); CREATININE 1.16 mg/dL (0.55-1.02); TOTAL PROTEIN 7.3 gm/dL (6.4-8.2)
[2018-01-04 04:55] LABS: ABG BASE EXCESS 13.4 mmol/L (-2.0-2.0); ABG HCO3 40.7 mmol/l (22-26); ABG O2 SATURATION 91.5 % (95-97); ARTERIAL BLOOD GAS PH 7.379 (7.35-7.45); ARTERIAL BLOOD GAS PO2 61.2 mmHg (80-90)
[2018-01-04 04:57] LABS: ARTERIAL BLOOD GAS PCO2 70.5 mmHg (35-45)
[2018-01-04] MEDS ORDERED: PROBIOTIC1 EAC2 PO (05:33)
[2018-01-04] MEDS ORDERED: MUCINEX1200 M1 PO (06:35)
[2018-01-04 08:32] LABS: ABG BASE EXCESS 7.3 mmol/L (-2.0-2.0); ABG HCO3 34.5 mmol/l (22-26); ABG O2 SATURATION 96.7 % (95-97); ARTERIAL BLOOD GAS PCO2 68.8 mmHg (35-45); ARTERIAL BLOOD GAS PH 7.321 (7.35-7.45); ARTERIAL BLOOD GAS PO2 95.3 mmHg (80-90)
[2018-01-04 11:37] LABS: ABG BASE EXCESS 6.8 mmol/L (-2.0-2.0); ABG HCO3 31.3 mmol/l (22-26); ABG O2 SATURATION 99.7 % (95-97); ARTERIAL BLOOD GAS PCO2 46.5 mmHg (35-45); ARTERIAL BLOOD GAS PH 7.444 (7.35-7.45)
[2018-01-04 12:48] LABS: BILIRUBIN NEGATIVE (NEGATIVE); BLOOD NEGATIVE (NEGATIVE); CLARITY SL CLOUDY (CLEAR); COLOR YELLOW (YELLOW); GLUCOSE NEGATIVE (NEGATIVE); KETONE NEGATIVE (NEGATIVE); LEUKO ESTERASE NEGATIVE (NEGATIVE); NITRITE NEGATIVE (NEGATIVE); PH 5.5 (5.0-9.0); SPECIFIC GRAVITY 1.015 (1.005-1.030); UROBILINOGEN 0.2 E.U./dl (0.2-1.0)
[2018-01-04 13:45] LABS: BACTERIA 4+
[2018-01-05] VITALS (19 sets, daily range): BP systolic 72–178; BP diastolic 41–75
[2018-01-05 06:28] LABS: ALBUMIN 2.9 gm/dl (3.1-4.5); CREATININE 1.6 mg/dL (0.55-1.02); PHOSPHOROUS 3.2 mg/dL (2.5-4.9)
[2018-01-05 06:35] LABS: BASO % 0.1 % (0.0-1.0); HEMATOCRIT 29.2 % (37.0-47.0); HEMOGLOBIN 9.2 g/dl (12.0-16.0); LYMPH # 0.6 10*3/uL (1.3-4.4); LYMPH % 5.4 % (27.0-41.0); MEAN CORPUSCULAR HGB 28.3 pg (27.0-31.0); MEAN CORPUSCULAR HGB CONC 31.5 g/dl (33.0-37.0); MEAN PLATELET VOLUME 10.5 fl (9.6-12.3); MONO # 0.5 10*3/uL (0.1-1.0); MONO % 4.4 % (3.0-9.0); NEUT # 10.5 10*3/uL (2.3-7.9); NEUT % 89.2 % (47.0-73.0); PLATELET COUNT AUTOMATED 282 10*3/uL (130-400); RED BLOOD COUNT 3.25 10*6/uL (4.10-5.10); RED CELL DISTRI WIDTH 14.3 % (0-14.5); WHITE BLOOD COUNT 11.7 10*3/uL (4.8-10.8)
[2018-01-05 06:36] LABS: POTASSIUM 3.4 mmol/L (3.5-5.1); TOTAL PROTEIN 6.3 gm/dL (6.4-8.2)
[2018-01-05 06:41] LABS: FREE T4 0.59 ng/dl (0.76-1.46); THYROID STIM HORMONE (HS) 10.1 uIU/ml (0.358-4.75)
[2018-01-05 06:56] LABS: MEAN CELL VOLUME 89.8 fl (81.0-99.0)
[2018-01-05 06:59] LABS: ABG BASE EXCESS 9.4 mmol/L (-2.0-2.0); ABG HCO3 33.2 mmol/l (22-26); ABG O2 SATURATION 98.3 % (95-97); ARTERIAL BLOOD GAS PCO2 41.6 mmHg (35-45); ARTERIAL BLOOD GAS PH 7.511 (7.35-7.45); ARTERIAL BLOOD GAS PO2 96.1 mmHg (80-90)
[2018-01-05 08:43] LABS: VITAMIN D, 25-HYDROXY 90.8 ng/mL (30-100)
[2018-01-06] VITALS: BP 111/47
[2018-01-06 04:00] VITALS: BP 138/49
[2018-01-06 05:47] LABS: CREATININE 1.44 mg/dL (0.55-1.02); POTASSIUM 4.3 mmol/L (3.5-5.1)
[2018-01-06 05:52] LABS: HEMATOCRIT 29.5 % (37.0-47.0); HEMOGLOBIN 8.8 g/dl (12.0-16.0); MEAN CORPUSCULAR HGB 27.8 pg (27.0-31.0); MEAN CORPUSCULAR HGB CONC 29.8 g/dl (33.0-37.0); MEAN PLATELET VOLUME 11.3 fl (9.6-12.3); PLATELET COUNT AUTOMATED 246 10*3/uL (130-400); RED BLOOD COUNT 3.16 10*6/uL (4.10-5.10); RED CELL DISTRI WIDTH 14.6 % (0-14.5); WHITE BLOOD COUNT 12.3 10*3/uL (4.8-10.8)
[2018-01-06 05:57] LABS: MEAN CELL VOLUME 93.4 fl (81.0-99.0)
[2018-01-06 06:59] LABS: PLATELET SUFFICIENCY NORMAL (NORMAL); TOTAL CELLS COUNTED 100 #CELLS
[2018-01-06 08:00] VITALS: BP 134/60
[2018-01-06 08:18] LABS: ABG HCO3 37.1 mmol/l (22-26); ABG O2 SATURATION 95.2 % (95-97); ARTERIAL BLOOD GAS PCO2 56.7 mmHg (35-45); ARTERIAL BLOOD GAS PH 7.43 (7.35-7.45); ARTERIAL BLOOD GAS PO2 71.2 mmHg (80-90)
[2018-01-06 16:00] VITALS: BP 121/47
[2018-01-06 20:00] VITALS: BP 106/44
[2018-01-07] VITALS: BP 148/57
[2018-01-07 04:00] VITALS: BP 123/46
[2018-01-07 05:52] LABS: HEMATOCRIT 28.9 % (37.0-47.0); HEMOGLOBIN 8.6 g/dl (12.0-16.0); LYMPH # 0.6 10*3/uL (1.3-4.4); LYMPH % 4.9 % (27.0-41.0); MEAN CELL VOLUME 94.8 fl (81.0-99.0); MEAN CORPUSCULAR HGB 28.2 pg (27.0-31.0); MEAN CORPUSCULAR HGB CONC 29.8 g/dl (33.0-37.0); MEAN PLATELET VOLUME 10.7 fl (9.6-12.3); MONO # 0.9 10*3/uL (0.1-1.0); MONO % 8.3 % (3.0-9.0); NEUT # 9.6 10*3/uL (2.3-7.9); NEUT % 85.9 % (47.0-73.0); PLATELET COUNT AUTOMATED 247 10*3/uL (130-400); RED BLOOD COUNT 3.05 10*6/uL (4.10-5.10); RED CELL DISTRI WIDTH 14.6 % (0-14.5); WHITE BLOOD COUNT 11.1 10*3/uL (4.8-10.8)
[2018-01-07 05:58] LABS: CREATININE 1.17 mg/dL (0.55-1.02); POTASSIUM 4.5 mmol/L (3.5-5.1)
[2018-01-07 07:56] VITALS: BP 134/49
[2018-01-07 08:19] LABS: ABG HCO3 37.5 mmol/l (22-26); ABG O2 SATURATION 91.7 % (95-97); ARTERIAL BLOOD GAS PCO2 56.4 mmHg (35-45); ARTERIAL BLOOD GAS PH 7.437 (7.35-7.45); ARTERIAL BLOOD GAS PO2 61.5 mmHg (80-90)
[2018-01-07 12:00] VITALS: BP 147/83; BP 155/55
[2018-01-07 12:56] LABS: ABG BASE EXCESS 11.8 mmol/L (-2.0-2.0); ABG HCO3 37.6 mmol/l (22-26); ABG O2 SATURATION 96.8 % (95-97); ARTERIAL BLOOD GAS PCO2 57.8 mmHg (35-45); ARTERIAL BLOOD GAS PH 7.427 (7.35-7.45); ARTERIAL BLOOD GAS PO2 84.8 mmHg (80-90)
[2018-01-07 16:00] VITALS: BP 160/54
[2018-01-07 16:24] LABS: ABG BASE EXCESS 9.9 mmol/L (-2.0-2.0); ABG HCO3 35.7 mmol/l (22-26); ABG O2 SATURATION 98.5 % (95-97); ARTERIAL BLOOD GAS PCO2 57.4 mmHg (35-45); ARTERIAL BLOOD GAS PH 7.409 (7.35-7.45)
[2018-01-07 20:00] VITALS: BP 160/50
[2018-01-08] VITALS: BP 159/62
[2018-01-08 04:00] VITALS: BP 158/57
[2018-01-08 05:51] LABS: BASO % 0.1 % (0.0-1.0); EOS % 0.1 % (1.0-4.0); HEMATOCRIT 31.8 % (37.0-47.0); HEMOGLOBIN 9.5 g/dl (12.0-16.0); LYMPH # 0.8 10*3/uL (1.3-4.4); LYMPH % 8.1 % (27.0-41.0); MEAN CELL VOLUME 95.2 fl (81.0-99.0); MEAN CORPUSCULAR HGB 28.4 pg (27.0-31.0); MEAN CORPUSCULAR HGB CONC 29.9 g/dl (33.0-37.0); MEAN PLATELET VOLUME 10.5 fl (9.6-12.3); MONO # 0.5 10*3/uL (0.1-1.0); MONO % 5.6 % (3.0-9.0); NEUT # 7.9 10*3/uL (2.3-7.9); NEUT % 85.7 % (47.0-73.0); PLATELET COUNT AUTOMATED 255 10*3/uL (130-400); RED BLOOD COUNT 3.34 10*6/uL (4.10-5.10); RED CELL DISTRI WIDTH 14.5 % (0-14.5); WHITE BLOOD COUNT 9.2 10*3/uL (4.8-10.8)
[2018-01-08 05:53] LABS: BUN 24 mg/dl (7-24); CHLORIDE 98 mmol/L (98-107); CREATININE 0.95 mg/dL (0.55-1.02); POTASSIUM 4.5 mmol/L (3.5-5.1); SODIUM 139 mmol/L (136-145)
[2018-01-08 08:00] VITALS: BP 159/64
[2018-01-08 12:00] VITALS: BP 169/61
[2018-01-08 16:00] VITALS: BP 159/64
[2018-01-08 20:00] VITALS: BP 136/66
[2018-01-09] VITALS: BP 133/53
[2018-01-09 04:00] VITALS: BP 132/58
[2018-01-09 05:54] LABS: BUN 23 mg/dl (7-24); CHLORIDE 97 mmol/L (98-107); CREATININE 0.98 mg/dL (0.55-1.02); PHOSPHOROUS 3.1 mg/dL (2.5-4.9); POTASSIUM 3.6 mmol/L (3.5-5.1); SODIUM 140 mmol/L (136-145)
[2018-01-09 06:01] LABS: BASO % 0.1 % (0.0-1.0); EOS # 0.1 10*3/uL (0.0-0.4); EOS % 1.4 % (1.0-4.0); HEMATOCRIT 33.7 % (37.0-47.0); LYMPH # 1.8 10*3/uL (1.3-4.4); LYMPH % 19.4 % (27.0-41.0); MEAN CELL VOLUME 94.1 fl (81.0-99.0); MEAN CORPUSCULAR HGB 27.9 pg (27.0-31.0); MEAN CORPUSCULAR HGB CONC 29.7 g/dl (33.0-37.0); MEAN PLATELET VOLUME 10.5 fl (9.6-12.3); MONO # 1.1 10*3/uL (0.1-1.0); MONO % 11.4 % (3.0-9.0); NEUT # 6.4 10*3/uL (2.3-7.9); NEUT % 67.1 % (47.0-73.0); PLATELET COUNT AUTOMATED 291 10*3/uL (130-400); RED BLOOD COUNT 3.58 10*6/uL (4.10-5.10); RED CELL DISTRI WIDTH 14.1 % (0-14.5); WHITE BLOOD COUNT 9.5 10*3/uL (4.8-10.8)
[2018-01-09 08:00] VITALS: BP 160/70
[2018-01-09 11:46] VITALS: BP 138/70
[2018-01-09 16:00] VITALS: BP 150/70
[2018-01-09 20:00] VITALS: BP 138/48
[2018-01-10] VITALS: BP 140/51
[2018-01-10 04:00] VITALS: BP 149/53
[2018-01-10 08:00] VITALS: BP 167/65
[2018-01-10 12:00] VITALS: BP 159/50
[2018-01-10 16:00] VITALS: BP 140/54
[2018-01-10 20:00] VITALS: BP 127/57
[2018-01-11] VITALS: BP 157/47
[2018-01-11 08:00] VITALS: BP 153/59
[2018-01-11 12:00] VITALS: BP 136/46
[2018-01-11 16:00] VITALS: BP 130/75
[2018-01-11 20:00] VITALS: BP 137/45
[2018-01-11 20:45] VITALS: BP 140/48
[2018-01-12] VITALS: BP 154/59
[2018-01-12 06:53] LABS: BASO % 0.1 % (0.0-1.0); EOS # 0.2 10*3/uL (0.0-0.4); EOS % 1.9 % (1.0-4.0); HEMATOCRIT 32.4 % (37.0-47.0); HEMOGLOBIN 9.7 g/dl (12.0-16.0); LYMPH # 1.8 10*3/uL (1.3-4.4); LYMPH % 17.5 % (27.0-41.0); MEAN CELL VOLUME 94.5 fl (81.0-99.0); MEAN CORPUSCULAR HGB 28.3 pg (27.0-31.0); MEAN CORPUSCULAR HGB CONC 29.9 g/dl (33.0-37.0); MEAN PLATELET VOLUME 9.9 fl (9.6-12.3); MONO % 10.1 % (3.0-9.0); NEUT % 69.9 % (47.0-73.0); PLATELET COUNT AUTOMATED 299 10*3/uL (130-400); RED BLOOD COUNT 3.43 10*6/uL (4.10-5.10); RED CELL DISTRI WIDTH 14.1 % (0-14.5)
[2018-01-12 07:08] LABS: CREATININE 0.74 mg/dL (0.55-1.02)
[2018-01-12 12:00] VITALS: BP 116/44
== END 2018-01-12 13:53 | disposition home or self-care (01) | DRG 208 ==
LOC: ED 03:56 → EDHOLD 05:07 → ICCU 05:07 → 5E 01-10 13:38
PROVIDERS: Internal Medicine; Internal Medicine Critical Care Medicine; Student in an Organized Health Care Education/Training Program
PROC: 0BH17EZ Insertion of Endotracheal Airway into Trachea, Via Natural or Artificial Opening (ICD-10-PCS; principal; 2018-01-04)
PROC: 5A1945Z Respiratory Ventilation, 24-96 Consecutive Hours (ICD-10-PCS; principal; 2018-01-04)
PROC: 5A09357 Assistance with Respiratory Ventilation, Less than 24 Consecutive Hours, Continuous Positive Airway Pressure (ICD-10-PCS; principal; 2018-01-04)
PROC: 5A09357 Assistance with Respiratory Ventilation, Less than 24 Consecutive Hours, Continuous Positive Airway Pressure (ICD-10-PCS; 2018-01-08)
PROC: 5A09357 Assistance with Respiratory Ventilation, Less than 24 Consecutive Hours, Continuous Positive Airway Pressure (ICD-10-PCS; 2018-01-09)
PROC: 5A09357 Assistance with Respiratory Ventilation, Less than 24 Consecutive Hours, Continuous Positive Airway Pressure (ICD-10-PCS; 2018-01-10)
DX: J18.9 Pneumonia, unspecified organism (principal); J96.21 Acute and chronic respiratory failure with hypoxia; E44.0 Moderate protein-calorie malnutrition; E87.3 Alkalosis; E87.2 Acidosis; N17.9 Acute kidney failure, unspecified; J96.22 Acute and chronic respiratory failure with hypercapnia; J44.1 Chronic obstructive pulmonary disease with (acute) exacerbation; I50.32 Chronic diastolic (congestive) heart failure; J44.0 Chronic obstructive pulmonary disease with (acute) lower respiratory infection; N39.0 Urinary tract infection, site not specified; Z68.1 Body mass index [BMI] 19.9 or less, adult; I13.0 Hypertensive heart and chronic kidney disease with heart failure and stage 1 through stage 4 chronic kidney disease, or unspecified chronic kidney disease; D50.9 Iron deficiency anemia, unspecified; N18.3 Chronic kidney disease, stage 3 (moderate); K21.9 Gastro-esophageal reflux disease without esophagitis; E55.9 Vitamin D deficiency, unspecified; L40.9 Psoriasis, unspecified; E86.9 Volume depletion, unspecified; I25.10 Atherosclerotic heart disease of native coronary artery without angina pectoris; Z99.81 Dependence on supplemental oxygen; Z90.49 Acquired absence of other specified parts of digestive tract; Z87.891 Personal history of nicotine dependence; Z82.49 Family history of ischemic heart disease and other diseases of the circulatory system; Z83.3 Family history of diabetes mellitus; Z88.6 Allergy status to analgesic agent; Z79.82 Long term (current) use of aspirin; Z79.899 Other long term (current) drug therapy; Z88.8 Allergy status to other drugs, medicaments and biological substances

== ENCOUNTER 2018-05-17 19:49 | Emergency (ER) | payer OTHER ==
[~2018-05-17] VITALS: Wt 44.5 kg
[~2018-05-17 19:49] MED LIST changes: +MUCINEX1200 M1 PO; +PROBIOTIC1 EAC2 PO
[2018-05-17] MEDS ORDERED: ACETAMINOPHEN325 M2 PO (20:50)
[2018-05-17] MEDS ORDERED: NYSTATIN CREAM15 GM T (20:53)
== END 2018-05-17 21:05 | disposition home or self-care (01) ==
LOC: ED 19:49
DX: S61.512A Laceration without foreign body of left wrist, initial encounter (principal); I13.0 Hypertensive heart and chronic kidney disease with heart failure and stage 1 through stage 4 chronic kidney disease, or unspecified chronic kidney disease; N18.3 Chronic kidney disease, stage 3 (moderate); I50.32 Chronic diastolic (congestive) heart failure; I25.2 Old myocardial infarction; I25.10 Atherosclerotic heart disease of native coronary artery without angina pectoris; J44.9 Chronic obstructive pulmonary disease, unspecified; K21.9 Gastro-esophageal reflux disease without esophagitis; Z87.891 Personal history of nicotine dependence; Z90.49 Acquired absence of other specified parts of digestive tract; Z88.5 Allergy status to narcotic agent; Z79.82 Long term (current) use of aspirin; Z79.899 Other long term (current) drug therapy; W23.0XXA Caught, crushed, jammed, or pinched between moving objects, initial encounter; Y93.89 Activity, other specified; Y92.89 Other specified places as the place of occurrence of the external cause; Y99.8 Other external cause status

== ENCOUNTER 2018-05-23 20:59 | Emergency (ER) | payer OTHER ==
[~2018-05-23] VITALS: Ht 149.8 cm; Wt 40.8 kg
[~2018-05-23 20:59] MED LIST changes: +ACETAMINOPHEN325 M2 PO; +NYSTATIN CREAM15 GM T
[2018-05-23] MEDS ORDERED: CEFADROXIL500 M1 PO (21:44)
== END 2018-05-23 21:34 | disposition home or self-care (01) ==
LOC: ED 20:59
DX: L08.89 Other specified local infections of the skin and subcutaneous tissue (principal); L53.8 Other specified erythematous conditions; Z87.891 Personal history of nicotine dependence; Z79.82 Long term (current) use of aspirin; Z79.899 Other long term (current) drug therapy; Z88.6 Allergy status to analgesic agent